=== PATIENT | male | born 1950 | race Caucasian/White ===

== ENCOUNTER → 2022-08-26 09:53 | Outpatient (CLI) | payer MEDICARE, MEDICAID, SELFPAY | PROVIDERS: Visit Provider Surgery | DX: I87.2 Venous insufficiency (chronic) (peripheral) (principal); L97.212 Non-pressure chronic ulcer of right calf with fat layer exposed; G60.9 Hereditary and idiopathic neuropathy, unspecified; L97.312 Non-pressure chronic ulcer of right ankle with fat layer exposed; L97.812 Non-pressure chronic ulcer of other part of right lower leg with fat layer exposed; M79.604 Pain in right leg; R60.0 Localized edema | CPT/HCPCS: 11042; 11045; 29581; 87070; 87075; 87077; 87186; 87205; 93922; 99204; 99214 ==

== ENCOUNTER → 2022-08-28 10:05 | Outpatient (CLI) | payer MEDICARE, MEDICAID, SELFPAY | PROVIDERS: Visit Provider Surgery | DX: I87.2 Venous insufficiency (chronic) (peripheral) (principal); L97.312 Non-pressure chronic ulcer of right ankle with fat layer exposed; L97.812 Non-pressure chronic ulcer of other part of right lower leg with fat layer exposed; R60.0 Localized edema | CPT/HCPCS: 29581 ==

== ENCOUNTER → 2022-09-02 11:44 | Outpatient (CLI) | payer MEDICARE, MEDICAID, SELFPAY | PROVIDERS: Visit Provider Surgery | DX: I87.2 Venous insufficiency (chronic) (peripheral) (principal); L97.312 Non-pressure chronic ulcer of right ankle with fat layer exposed; L97.812 Non-pressure chronic ulcer of other part of right lower leg with fat layer exposed; G90.09 Other idiopathic peripheral autonomic neuropathy | CPT/HCPCS: 97597; 97598; 99213 ==

== ENCOUNTER → 2022-09-08 10:29 | Outpatient (CLI) | payer MEDICARE, MEDICAID, SELFPAY | PROVIDERS: Visit Provider Surgery | DX: I87.2 Venous insufficiency (chronic) (peripheral) (principal); L97.312 Non-pressure chronic ulcer of right ankle with fat layer exposed; L97.812 Non-pressure chronic ulcer of other part of right lower leg with fat layer exposed; G60.9 Hereditary and idiopathic neuropathy, unspecified; M79.604 Pain in right leg; R60.0 Localized edema | CPT/HCPCS: 11042; 11045 ==

== ENCOUNTER → 2022-09-12 12:42 | Outpatient (CLI) | payer MEDICARE, MEDICAID, SELFPAY | PROVIDERS: Visit Provider Surgery | DX: I87.2 Venous insufficiency (chronic) (peripheral) (principal); L97.312 Non-pressure chronic ulcer of right ankle with fat layer exposed; L97.812 Non-pressure chronic ulcer of other part of right lower leg with fat layer exposed; R60.0 Localized edema | CPT/HCPCS: 29581 ==

== ENCOUNTER → 2022-09-17 15:03 | Outpatient (CLI) | payer MEDICARE, MEDICAID, SELFPAY | PROVIDERS: Visit Provider Surgery | DX: I87.2 Venous insufficiency (chronic) (peripheral) (principal); L97.312 Non-pressure chronic ulcer of right ankle with fat layer exposed; L97.812 Non-pressure chronic ulcer of other part of right lower leg with fat layer exposed; G60.9 Hereditary and idiopathic neuropathy, unspecified; R60.0 Localized edema | CPT/HCPCS: 11042; 11045 ==

== ENCOUNTER → 2022-09-24 11:46 | Outpatient (CLI) | payer MEDICARE, MEDICAID, SELFPAY | PROVIDERS: Visit Provider Surgery | DX: I87.2 Venous insufficiency (chronic) (peripheral) (principal); L97.312 Non-pressure chronic ulcer of right ankle with fat layer exposed; L97.812 Non-pressure chronic ulcer of other part of right lower leg with fat layer exposed; R60.0 Localized edema | CPT/HCPCS: 29581 ==

== ENCOUNTER → 2022-10-07 09:52 | Outpatient (CLI) | payer MEDICARE, MEDICAID, SELFPAY | PROVIDERS: Visit Provider Surgery | DX: I87.2 Venous insufficiency (chronic) (peripheral) (principal); L97.312 Non-pressure chronic ulcer of right ankle with fat layer exposed; L97.811 Non-pressure chronic ulcer of other part of right lower leg limited to breakdown of skin; R60.0 Localized edema; F42.4 Excoriation (skin-picking) disorder | CPT/HCPCS: 29581 ==

== ENCOUNTER → 2022-10-14 09:58 | Outpatient (CLI) | payer MEDICARE, MEDICAID, SELFPAY | PROVIDERS: Visit Provider Surgery | DX: I87.2 Venous insufficiency (chronic) (peripheral) (principal); L97.312 Non-pressure chronic ulcer of right ankle with fat layer exposed; G60.9 Hereditary and idiopathic neuropathy, unspecified | CPT/HCPCS: 11042 ==

== ENCOUNTER → 2022-10-21 10:26 | Outpatient (CLI) | payer MEDICARE, MEDICAID, SELFPAY | PROVIDERS: Visit Provider Surgery | DX: I87.2 Venous insufficiency (chronic) (peripheral) (principal); L97.312 Non-pressure chronic ulcer of right ankle with fat layer exposed; R60.0 Localized edema | CPT/HCPCS: 97597; 99212; 99213 ==

== ENCOUNTER → 2022-10-28 10:37 | Outpatient (CLI) | payer MEDICARE, MEDICAID, SELFPAY | PROVIDERS: Visit Provider Surgery | DX: I87.2 Venous insufficiency (chronic) (peripheral) (principal); S90.122A Contusion of left lesser toe(s) without damage to nail, initial encounter; L97.312 Non-pressure chronic ulcer of right ankle with fat layer exposed; G60.9 Hereditary and idiopathic neuropathy, unspecified | CPT/HCPCS: 11042; 97597; 99213 ==

== ENCOUNTER → 2022-11-03 08:50 | Outpatient (CLI) | payer MEDICARE, MEDICAID, SELFPAY | PROVIDERS: Visit Provider Surgery | DX: I87.2 Venous insufficiency (chronic) (peripheral) (principal); L97.312 Non-pressure chronic ulcer of right ankle with fat layer exposed; S90.415A Abrasion, left lesser toe(s), initial encounter; G60.9 Hereditary and idiopathic neuropathy, unspecified; R60.0 Localized edema; F42.4 Excoriation (skin-picking) disorder | CPT/HCPCS: 11042; 97597 ==

== ENCOUNTER → 2022-11-10 10:52 | Outpatient (CLI) | payer MEDICARE, MEDICAID, SELFPAY | PROVIDERS: Visit Provider Surgery | DX: I87.2 Venous insufficiency (chronic) (peripheral) (principal); L97.312 Non-pressure chronic ulcer of right ankle with fat layer exposed; S90.415A Abrasion, left lesser toe(s), initial encounter; R60.0 Localized edema | CPT/HCPCS: 97597 ==

== ENCOUNTER → 2022-11-17 10:19 | Outpatient (CLI) | payer MEDICARE, MEDICAID, SELFPAY | PROVIDERS: Visit Provider Surgery | DX: I87.2 Venous insufficiency (chronic) (peripheral) (principal); L97.212 Non-pressure chronic ulcer of right calf with fat layer exposed; L97.312 Non-pressure chronic ulcer of right ankle with fat layer exposed; S90.414D Abrasion, right lesser toe(s), subsequent encounter | CPT/HCPCS: 97597 ==

== ENCOUNTER → 2022-11-24 13:34 | Outpatient (CLI) | payer MEDICARE, MEDICAID, SELFPAY | PROVIDERS: Visit Provider Surgery | DX: I87.2 Venous insufficiency (chronic) (peripheral) (principal); L97.312 Non-pressure chronic ulcer of right ankle with fat layer exposed; R60.0 Localized edema; G60.0 Hereditary motor and sensory neuropathy | CPT/HCPCS: 97597; 99212; 99213 ==

== ENCOUNTER → 2022-12-01 13:41 | Outpatient (CLI) | payer MEDICARE, MEDICAID, SELFPAY | PROVIDERS: Visit Provider Surgery | DX: I87.2 Venous insufficiency (chronic) (peripheral) (principal); L97.312 Non-pressure chronic ulcer of right ankle with fat layer exposed; G60.9 Hereditary and idiopathic neuropathy, unspecified; R60.0 Localized edema | CPT/HCPCS: 97597 ==

== ENCOUNTER → 2022-12-08 10:15 | Outpatient (CLI) | payer MEDICARE, MEDICAID, SELFPAY | PROVIDERS: Visit Provider Surgery | DX: I87.2 Venous insufficiency (chronic) (peripheral) (principal); L97.312 Non-pressure chronic ulcer of right ankle with fat layer exposed; G60.9 Hereditary and idiopathic neuropathy, unspecified; R60.0 Localized edema | CPT/HCPCS: 87070; 87077; 87147; 87186; 87205; 97597; 99213 ==

== ENCOUNTER → 2022-12-15 10:54 | Outpatient (CLI) | payer MEDICARE, MEDICAID, SELFPAY | PROVIDERS: Visit Provider Surgery | DX: I87.2 Venous insufficiency (chronic) (peripheral) (principal); L97.312 Non-pressure chronic ulcer of right ankle with fat layer exposed; R60.0 Localized edema; G60.9 Hereditary and idiopathic neuropathy, unspecified | CPT/HCPCS: 97597 ==

== ENCOUNTER → 2022-12-23 09:37 | Outpatient (CLI) | payer MEDICARE, MEDICAID, SELFPAY | PROVIDERS: Visit Provider Surgery | DX: I87.2 Venous insufficiency (chronic) (peripheral) (principal); L97.312 Non-pressure chronic ulcer of right ankle with fat layer exposed; R60.0 Localized edema | CPT/HCPCS: 97597; 99213 ==

== ENCOUNTER → 2022-12-30 09:58 | Outpatient (CLI) | payer MEDICARE, MEDICAID, SELFPAY | PROVIDERS: Visit Provider Surgery | DX: I87.2 Venous insufficiency (chronic) (peripheral) (principal); L97.312 Non-pressure chronic ulcer of right ankle with fat layer exposed; G60.9 Hereditary and idiopathic neuropathy, unspecified; R60.0 Localized edema | CPT/HCPCS: 97597; 99213 ==

== ENCOUNTER → 2023-01-06 11:33 | Outpatient (CLI) | payer MEDICARE, MEDICAID, SELFPAY | PROVIDERS: Visit Provider Surgery | DX: I87.2 Venous insufficiency (chronic) (peripheral) (principal); L97.322 Non-pressure chronic ulcer of left ankle with fat layer exposed; R60.0 Localized edema; S81.801A Unspecified open wound, right lower leg, initial encounter | CPT/HCPCS: 97597; 99213 ==

== ENCOUNTER → 2023-01-13 10:51 | Outpatient (CLI) | payer MEDICARE, MEDICAID, SELFPAY | PROVIDERS: Visit Provider Surgery | DX: I87.2 Venous insufficiency (chronic) (peripheral) (principal); L97.312 Non-pressure chronic ulcer of right ankle with fat layer exposed; S81.801A Unspecified open wound, right lower leg, initial encounter | CPT/HCPCS: 29581; 99213 ==

== ENCOUNTER → 2023-01-20 11:13 | Outpatient (CLI) | payer MEDICARE, MEDICAID, SELFPAY | PROVIDERS: Visit Provider Surgery | DX: I87.2 Venous insufficiency (chronic) (peripheral) (principal); L97.312 Non-pressure chronic ulcer of right ankle with fat layer exposed; S81.801A Unspecified open wound, right lower leg, initial encounter | CPT/HCPCS: 97597; 99212; 99213 ==

== ENCOUNTER → 2023-01-27 10:14 | Outpatient (CLI) | payer MEDICARE, MEDICAID, SELFPAY | PROVIDERS: Visit Provider Surgery | DX: I87.2 Venous insufficiency (chronic) (peripheral) (principal); L97.312 Non-pressure chronic ulcer of right ankle with fat layer exposed; R60.0 Localized edema | CPT/HCPCS: 11042 ==

== ENCOUNTER → 2023-02-03 10:00 | Outpatient (CLI) | payer MEDICARE, MEDICAID, SELFPAY | PROVIDERS: Visit Provider Surgery | DX: I87.2 Venous insufficiency (chronic) (peripheral) (principal); L97.312 Non-pressure chronic ulcer of right ankle with fat layer exposed; R60.0 Localized edema; G60.9 Hereditary and idiopathic neuropathy, unspecified | CPT/HCPCS: 29581; 99213 ==

== ENCOUNTER → 2023-02-10 10:05 | Outpatient (CLI) | payer MEDICARE, MEDICAID, SELFPAY | PROVIDERS: Visit Provider Surgery | DX: I87.2 Venous insufficiency (chronic) (peripheral) (principal); L97.312 Non-pressure chronic ulcer of right ankle with fat layer exposed; G60.9 Hereditary and idiopathic neuropathy, unspecified | CPT/HCPCS: 29581; 99213 ==

== ENCOUNTER → 2023-02-17 10:16 | Outpatient (CLI) | payer MEDICARE, MEDICAID, SELFPAY | PROVIDERS: Visit Provider Surgery | DX: I87.2 Venous insufficiency (chronic) (peripheral) (principal) | CPT/HCPCS: 99213 ==

== ENCOUNTER → 2023-02-24 10:18 | Outpatient (CLI) | payer MEDICARE, MEDICAID, SELFPAY | PROVIDERS: Referring Provider Family Medicine; Visit Provider Surgery | DX: I87.2 Venous insufficiency (chronic) (peripheral) (principal); L97.811 Non-pressure chronic ulcer of other part of right lower leg limited to breakdown of skin; G60.9 Hereditary and idiopathic neuropathy, unspecified | CPT/HCPCS: 99213 ==

== ENCOUNTER → 2023-03-03 10:15 | Outpatient (CLI) | payer MEDICARE, MEDICAID, SELFPAY | PROVIDERS: Visit Provider Surgery | DX: I87.2 Venous insufficiency (chronic) (peripheral) (principal); G60.9 Hereditary and idiopathic neuropathy, unspecified; I25.10 Atherosclerotic heart disease of native coronary artery without angina pectoris | CPT/HCPCS: 99213 ==

== ENCOUNTER → 2023-03-17 13:13 | Outpatient (CLI) | payer MEDICARE, MEDICAID, SELFPAY | LOC: WC 13:14 | PROVIDERS: Visit Provider Surgery | DX: I87.2 Venous insufficiency (chronic) (peripheral) (principal); G60.9 Hereditary and idiopathic neuropathy, unspecified | CPT/HCPCS: 99212; 99213 ==

== ENCOUNTER → 2023-05-27 13:57 | Outpatient (CLI) | payer MEDICARE, MEDICAID, SELFPAY | LOC: WC 13:59 | PROVIDERS: Visit Provider Surgery | DX: I87.2 Venous insufficiency (chronic) (peripheral) (principal); L97.812 Non-pressure chronic ulcer of other part of right lower leg with fat layer exposed; M79.604 Pain in right leg | CPT/HCPCS: 11042; 87070; 87075; 87077; 87147; 87186; 87205; 99213 ==

== ENCOUNTER → 2023-06-03 10:00 | Outpatient (CLI) | payer MEDICARE, MEDICAID, SELFPAY | PROVIDERS: Visit Provider Surgery | DX: I87.2 Venous insufficiency (chronic) (peripheral) (principal); L97.812 Non-pressure chronic ulcer of other part of right lower leg with fat layer exposed; G60.9 Hereditary and idiopathic neuropathy, unspecified | CPT/HCPCS: 11042; 99213 ==

== ENCOUNTER → 2023-06-09 10:42 | Outpatient (CLI) | payer MEDICARE, MEDICAID, SELFPAY | LOC: WC 10:45 | PROVIDERS: Visit Provider Surgery | DX: I87.2 Venous insufficiency (chronic) (peripheral) (principal); L97.812 Non-pressure chronic ulcer of other part of right lower leg with fat layer exposed; R60.0 Localized edema | CPT/HCPCS: 11042 ==

== ENCOUNTER → 2023-06-16 14:45 | Outpatient (CLI) | payer MEDICARE, MEDICAID, SELFPAY ==
--- NOTE | 2023-06-16 | OV.WND_ITS ---
Progress Note Details Patient Name: Harinder Lopez Date: Patient Number: [id number] Clinician: Isi Bender R.N. Patient Date of : 1950 Physician / Stained Glass Window Designer: SherrieGuillermo Patient SUBJECTIVE Chief Complaint This information was obtained from the Chart, Patient. Wounds to right leg. Allergies Lamisil HPI This information was obtained from the Patient. The following HPI elements were documented for the patient's wound: Location: RLE Duration: 03/31/23 Context: venous Associated Signs and Symptoms: none The patient is a 71-year-old male with a history of venous insufficiency, neuropathy, and coronary artery disease who returns today for follow up of recurrent venous ulcers of the right lower extremity. The patient is receiving dressing changes with Hydrofera blue and 2 layer compression wrap. The patient is without complaints today and denies having any pain nor has he noted any significant redness, swelling, or drainage. No changes in overall health since previous visit. Past history is remarkable for previous ablation of the right greater saphenous vein in November 2016. Previous JAEL show adequate perfusion for healing. The patient reports a good appetite and is taking protein supplements. Cultures grew Enterobacter cloacae complex and Corynebacterium minutissimum. On exam today measurements are improved and the periwound skin is less excoriated. The patient has completed a week of doxycycline. Previous workup 05/31/23: Cultures grew Enterobacter cloacae complex and Corynebacterium minutissimum. 12/08/22: Cultures grew Staphylococcus simulans 08/26/22 : Cultures revealed Citrobacter braakii and Klebsiella oxytoca 08/26/22: ABIs were 1.01 on the left and 0.97 on the rig Medical History This information was obtained from the Patient. Patient has a medical history of: Hypothyroidism Coronary Artery Disease (CAD) Hydrocele Venous Insufficiency Venous stasis ulcer Idiopathic peripheral neuropathy Harinder Lopez [id number] 1950 Chronic knee pain Right inguinal hernia Surgical History This information was obtained from the Patient. Patient has a surgical history of: Appendectomy- 01/11/1960 Knee replacement- Kidney stone removal- (multiple) Stent placement - Venous ablation- R SFA- (2016) OBJECTIVE Vitals Height/Length: 74 in (187.96 cm), Weight: 208.5 lbs (94.77 kgs), BMI: 26.8, Temperature: 97.9 ?F (36.61 ?C), Pulse: 65 bpm, Respiratory Rate: 18 breaths/min, Blood Pressure: 156/73 mmHg, Pulse Oximetry: 96 %. Physical Exam Constitutional: Vital signs reviewed and noted. Well developed, well nourished, and in no acute distress. Alert and oriented x3. Respiratory: Even respirations without use of accessory muscles. No intercoastal retractions noted. Even and non labored respiration. Integumentary (Hair, Skin): Dry scaly skin. See wound assessment. Neurological: Sensation: Symmetric function by informal observation. Psychiatric: Orientation to time, place and person: Normal affect with normal thought pattern. Additional Information The patient's potential to heal is: fair. Wound Assessment(s) Wound #6 Right, Medial Leg is a chronic Full Thickness Venous Ulcer and has received a status of Not Healed. Initial wound encounter measurements are 1.6cm length x 1.1cm width x 0.2 cm depth, with an area of 1.76 sq cm and a volume of 0.352 cubic cm. Adipose is exposed. No tunneling has been noted. No sinus tract has been noted. No undermining has been noted. There is a Small amount of serosanguineous drainage noted which has a Mild odor. The patient reports a wound pain of level 4/10. The wound margin is attached Wound bed has Yes, bright red, pink, firm, granulation, Yes slough, No eschar, No epithelialization. The periwound skin exhibited edema, maceration and hemosiderosis. The periwound skin was moist. The temperature of the periwound skin is WNL. Periwound skin does not exhibit signs or symptoms of infection. Local Pulse is Doppler. General Notes Labeled incorrectly, should read #6. Additional Information Limited to breakdown of skin: Harinder Cha [id number] 1950 Wound #7 Right, Anterior Leg is a chronic Full Thickness Venous Ulcer and has received a status of Not Healed. Initial wound encounter measurements are 0.9cm length x 0.3cm width x 0.1 cm depth, with an area of 0.27 sq cm and a volume of 0.027 cubic cm. Adipose is exposed. No tunneling has been noted. No sinus tract has been noted. No undermining has been noted. There is a Moderate amount of serosanguineous drainage noted which has a Mild odor. The patient reports a wound pain of level 4/10. The wound margin is attached Wound bed has Yes, bright red, pink, firm, granulation, Yes slough, No eschar, No epithelialization. The periwound skin exhibited edema and hemosiderosis. The temperature of the periwound skin is WNL. Local Pulse is Doppler. General Notes Label is incorrect, should read #7. Additional Information Limited to breakdown of skin: No ASSESSMENT Active Problems ICD-10 (Encounter Diagnosis) L97.312 - Non-pressure chronic ulcer of right ankle with fat layer exposed (Encounter Diagnosis) L97.212 - Non-pressure chronic ulcer of right calf with fat layer exposed (Encounter Diagnosis) I87.2 - Venous insufficiency (chronic) (peripheral) General Notes 2 venous ulcers right lower extremity, measurements improved, periwound skin less excoriated The following factors have been identified that may affect wound healing: Devitalized tissue Bioburden Venous insufficiency Noncompliance Edema Goals: remove devitalized tissue Remove and prevent biofilm Reduce swelling Improve compliance Wound healing Prevent recurrence Plan: debridement, continue changes with Hydrofera blue and 2 layer compression wrap. Follow up in 1 week for a recheck. PROCEDURES Wound #6 Wound #6 (Venous Ulcer) is located on the right, medial leg. A skin/subcutaneous tissue level surgical debridement with a total area debrided of 1.76 sq cm. was performed by Guillermo Balderas MD. Subcutaneous was removed along with devitalized tissue: slough. The following instrument(s) were used: curette. Pain control was achieved using EMLA lidocaine/prilocaine 2.5%/2.5%. A time out was conducted prior to the start of the procedure. A minimal amount of bleeding was controlled with pressure. The procedure was tolerated well with a pain level of 0 throughout and a pain level of 0 NandeannaHarinder [id number] 1950 following the procedure. Post Debridement Measurements: 1.6cm length x 1.1cm width x 0.3cm depth; with an area of 1.76 sq cm and a volume of 0.528 cubic cm. Wound #6 (Venous Ulcer) is located on the right, medial leg. A Multilayer Compression procedure was performed for the lower right extremity by Nancy Gonzalez MA. A 2 layer Coban wrap was applied with high (30-40 mmHg) compression. The procedure was tolerated well with a pain level of 0 throughout and a pain level of 0 following the procedure. General Notes Coban 2 regulars applied per manufacture guidelines. Wound #7 Wound #7 (Venous Ulcer) is located on the right, anterior leg. A skin/subcutaneous tissue level surgical debridement with a total area debrided of 0.27 sq cm. was performed by Guillermo Balderas MD. Subcutaneous was removed along with devitalized tissue: slough. The following instrument(s) were used: curette. Pain control was achieved using EMLA lidocaine/prilocaine 2.5%/2.5%. A time out was conducted prior to the start of the procedure. A minimal amount of bleeding was controlled with pressure. The procedure was tolerated well with a pain level of 0 throughout and a pain level of 0 following the procedure. Post Debridement Measurements: 0.9cm length x 0.3cm width x 0.2cm depth; with an area of 0.27 sq cm and a volume of 0.054 cubic cm. Additional Information Muscle fascia or bone removed and sent to pathology?: No PLAN Wound Orders: Wound #6 Right, Medial Leg Anesthetic Topical Xylocaine to wound bed Hygiene May shower with wound protected, using a cast protector or plastic bag and tape Cleanser Cleanse Wound with normal saline Dressings Primary dressing - Hydrofera blue Cover and secure with - Paper tape. Change Dressing - Next visit Physician Review: Reviewed and evaluated labs. Discussed the Plan of Care @ bedside with - the patient Reviewed hospital records. I, as the physician, have reviewed the orders scribed by the center RN's and agree. Wound #7 Right, Anterior Leg Anesthetic Topical Xylocaine to wound bed Hygiene May shower with wound protected, using a cast protector or plastic bag and tape Cleanser Cleanse Wound with normal saline Dressings Primary dressing - Hydrofera blue Cover and secure with - Paper tape. Change Dressing - Next visit Physician Review: Reviewed and evaluated labs. Harinder Lopez [id number] 1950 Discussed the Plan of Care @ bedside with - the patient Reviewed hospital records. I, as the physician, have reviewed the orders scribed by the center RN's and agree. Additional Orders: Compression/Edema Control Multi Layer Wrap - Do not get leg(s) with compression wrap wet. If wraps are too tight call the wound care center or remove if you are unable to reach the center. Please remove wraps for numbness, tingling, pain in legs or color changes in toes and call the clinic the same day. If symptoms do not resolve after removing wraps please go to the ER for evaluation. Local pharmacies carry plastic cast protectors that may be used for protection while showering. - Coban 2 regulars Dietary Increased protein Follow-Up Appointments Return Appointment - One week Other information: If you develop fever, chills, increased pain, drainage, redness or swelling please call our office. If after hours, respond to the ER. Should you experience any significant changes in your wound(s) or have any questions regarding your home care instructions please contact the wound center @ [phone]. If after hours, contact your primary care physician or go to the hospital emergency room. Scribing Attestation I attest, as the nurse, that I scribed these orders for the physician. Plan of Care: 01. ENSURE/ESTABLISH OPTIMAL BLOOD FLOW : - Complete lower extremity assessment - Perform non-invasive vascular testing (i.e. JAEL) and document findings. Consider repeating when wound healing <40% after 30 days of wound care. - Order Vascular Consult for evaluation/treatment and/or non-invasive vascular testing. 02. ASSESS FOR/TREAT INFECTION : - Evaluate for signs and symptoms of infection and document findings. - Obtain culture and sensitivity (CandS) or tissue culture when infection is suspected. (NOTE:) Consider repeating when wound healing <40% after 30 days of wound care. - Order appropriate antibiotics based on patient presentation and culture and sensitivity results. Instruct patient on the importance of taking medication as prescribed. 03. DEBRIDE WEEKLY OR MORE OFTEN PRN : - Evaluate patient in center weekly to assess wound bed and margins for need for debridement. - Debridement by any method to remove devitalized/necrotic tissue to promote healing and prevent further complications. Goal is to stimulate and/or maintain acute phase of wound healing by reducing bacterial burden and devitalized/non-viable tissue. 04. OPTIMIZE GLUCOSE CONTROL and NUTRITION : - Reviewed, not applicable 05. OFFLOADING PLAN : - Reviewed, not applicable 06. OPTIMIZE HOST FACTORS: - Reviewed, not applicable 07. DRESSING SELECTION : - Evaluate for dressing-related factors, such as availability, wear time, adaptability and use to better optimize wound healing and patient compliance. - Choose topical treatments and/or dressing based on wound type and appearance, periwound skin condition, wound size and depth, anatomic location, volume of exudate, edema in the lower extremities, and risk or presence of infection. 08. ADVANCED MODALITIES : - Evaluate for appropriateness of Cellular Tissue Product therapy. 09. FALL PREVENTION : - Complete fall assessment. Harinder Lopez [id number] 1950 10. PAIN MANAGEMENT : - Complete pain assessment 11. MEASURABLE GOALS for Wound Healing and/or Hyperbaric Oxygen Therapy : - Less Drainage - Decrease Inflammation - Decrease pain - Decrease Wound Dimensions - Wound Closure - Improve quality of life 12. DURATION/FREQUENCY of Wound Care Visits : - 1x weekly for 30 days Electronic Signature(s) Signed By: Date: Guillermo Balderas MD 06/16/2023 15:05:12 (PT) Entered By: Guillermo Balderas MD on 06/16/2023 15:04:44 (PT) Harinder Lopez [id number] 1950
== END ==
LOC: WC 14:47
PROVIDERS: Visit Provider Surgery
DX: I87.2 Venous insufficiency (chronic) (peripheral) (principal); L97.812 Non-pressure chronic ulcer of other part of right lower leg with fat layer exposed; R60.0 Localized edema; G60.9 Hereditary and idiopathic neuropathy, unspecified; M79.604 Pain in right leg; Z91.198 Patient's noncompliance with other medical treatment and regimen for other reason
CPT/HCPCS: 11042

== ENCOUNTER → 2023-06-23 10:40 | Outpatient (CLI) | payer MEDICARE, MEDICAID, SELFPAY | PROVIDERS: Visit Provider Surgery | DX: I87.2 Venous insufficiency (chronic) (peripheral) (principal); L97.812 Non-pressure chronic ulcer of other part of right lower leg with fat layer exposed; G60.9 Hereditary and idiopathic neuropathy, unspecified; R60.0 Localized edema; L98.8 Other specified disorders of the skin and subcutaneous tissue | CPT/HCPCS: 11042 ==

== ENCOUNTER → 2023-06-30 10:46 | Outpatient (CLI) | payer MEDICARE, MEDICAID, SELFPAY | LOC: WC 11:16 | PROVIDERS: Visit Provider Surgery | DX: L97.812 Non-pressure chronic ulcer of other part of right lower leg with fat layer exposed (principal); I87.2 Venous insufficiency (chronic) (peripheral); I25.10 Atherosclerotic heart disease of native coronary artery without angina pectoris; R60.0 Localized edema; L53.9 Erythematous condition, unspecified; L08.9 Local infection of the skin and subcutaneous tissue, unspecified; Z79.2 Long term (current) use of antibiotics | CPT/HCPCS: 11042; 87070; 87075; 87077; 87186; 87205; 99213 ==

== ENCOUNTER → 2023-07-07 09:58 | Outpatient (CLI) | payer MEDICARE, MEDICAID, SELFPAY | LOC: WC 10:06 | PROVIDERS: Visit Provider Surgery | DX: I87.2 Venous insufficiency (chronic) (peripheral) (principal); L97.812 Non-pressure chronic ulcer of other part of right lower leg with fat layer exposed; R60.0 Localized edema; G60.9 Hereditary and idiopathic neuropathy, unspecified; I25.119 Atherosclerotic heart disease of native coronary artery with unspecified angina pectoris; Z91.199 Patient's noncompliance with other medical treatment and regimen due to unspecified reason | CPT/HCPCS: 11042 ==

== ENCOUNTER → 2023-07-14 10:14 | Outpatient (CLI) | payer MEDICARE, MEDICAID, SELFPAY | PROVIDERS: Visit Provider Surgery | DX: L97.312 Non-pressure chronic ulcer of right ankle with fat layer exposed (principal); I87.2 Venous insufficiency (chronic) (peripheral); R60.0 Localized edema | CPT/HCPCS: 11042 ==

== ENCOUNTER → 2023-07-21 10:47 | Outpatient (CLI) | payer MEDICARE, MEDICAID, SELFPAY | LOC: WC 10:48 | PROVIDERS: Visit Provider Surgery | DX: I87.2 Venous insufficiency (chronic) (peripheral) (principal); L97.312 Non-pressure chronic ulcer of right ankle with fat layer exposed; G60.9 Hereditary and idiopathic neuropathy, unspecified; L98.8 Other specified disorders of the skin and subcutaneous tissue; Z91.119 Patient's noncompliance with dietary regimen due to unspecified reason | CPT/HCPCS: 11042 ==

== ENCOUNTER → 2023-07-28 10:32 | Outpatient (CLI) | payer MEDICARE, MEDICAID, SELFPAY | PROVIDERS: Visit Provider Surgery | DX: I87.2 Venous insufficiency (chronic) (peripheral) (principal); L97.312 Non-pressure chronic ulcer of right ankle with fat layer exposed; L98.8 Other specified disorders of the skin and subcutaneous tissue; R60.0 Localized edema | CPT/HCPCS: 11042 ==

== ENCOUNTER → 2023-08-04 10:38 | Outpatient (CLI) | payer MEDICARE, MEDICAID, SELFPAY | PROVIDERS: Visit Provider Surgery | DX: I87.2 Venous insufficiency (chronic) (peripheral) (principal); L97.312 Non-pressure chronic ulcer of right ankle with fat layer exposed; G60.9 Hereditary and idiopathic neuropathy, unspecified; R60.0 Localized edema; L98.8 Other specified disorders of the skin and subcutaneous tissue | CPT/HCPCS: 11042; 99213 ==

== ENCOUNTER → 2023-08-07 13:52 | Outpatient (CLI) | payer MEDICARE, MEDICAID, SELFPAY | PROVIDERS: Visit Provider Physician Assistant | DX: I87.2 Venous insufficiency (chronic) (peripheral) (principal); L97.812 Non-pressure chronic ulcer of other part of right lower leg with fat layer exposed; R60.0 Localized edema; L98.8 Other specified disorders of the skin and subcutaneous tissue | CPT/HCPCS: 29581 ==

== ENCOUNTER → 2023-08-11 14:32 | Outpatient (CLI) | payer MEDICARE, MEDICAID, SELFPAY | LOC: WC 14:33 | PROVIDERS: Visit Provider Surgery | DX: I87.2 Venous insufficiency (chronic) (peripheral) (principal); L97.312 Non-pressure chronic ulcer of right ankle with fat layer exposed | CPT/HCPCS: 15271; Q4196 ==

== ENCOUNTER → 2023-08-18 13:44 | Outpatient (CLI) | payer MEDICARE, MEDICAID, SELFPAY | LOC: WC 13:45 | PROVIDERS: Visit Provider Surgery | DX: L97.312 Non-pressure chronic ulcer of right ankle with fat layer exposed (principal); I87.2 Venous insufficiency (chronic) (peripheral); R60.0 Localized edema; L53.9 Erythematous condition, unspecified | CPT/HCPCS: 15271; 29581; 99212; Q4196 ==

== ENCOUNTER → 2023-08-25 15:33 | Outpatient (CLI) | payer MEDICARE, MEDICAID, SELFPAY | PROVIDERS: Visit Provider Surgery | DX: L97.312 Non-pressure chronic ulcer of right ankle with fat layer exposed (principal); I87.2 Venous insufficiency (chronic) (peripheral) | CPT/HCPCS: 15271; 29581; 99213; Q4196 ==

== ENCOUNTER → 2023-09-01 10:44 | Outpatient (CLI) | payer MEDICARE, MEDICAID, SELFPAY | PROVIDERS: Visit Provider Surgery | DX: I87.2 Venous insufficiency (chronic) (peripheral) (principal); L97.812 Non-pressure chronic ulcer of other part of right lower leg with fat layer exposed; R60.0 Localized edema; L53.9 Erythematous condition, unspecified | CPT/HCPCS: 15271; 29581; 99213; Q4196 ==

== ENCOUNTER → 2023-09-08 13:28 | Outpatient (CLI) | payer MEDICARE, MEDICAID, SELFPAY ==
--- NOTE | 2023-09-08 | OV.WND_ITS ---
Progress Note Details Patient Name: Harinder Lopez Date: Patient Number: [id number] Clinician: Isi Bender R.N. Patient Date of : 1950 Physician / Huc: SherrieGuillermo Patient SUBJECTIVE Chief Complaint This information was obtained from the Chart. Wound to right leg. Allergies Lamisil HPI This information was obtained from the Patient. The following HPI elements were documented for the patient's wound: Location: RLE Duration: 03/31/23 Context: venous Associated Signs and Symptoms: none The patient is a 71-year-old male with a history of venous insufficiency, neuropathy, and coronary artery disease who returns today for follow up of recurrent venous ulcers of the right lower extremity. The patient had the 4th application of PuraPly last week with 2 layer compression wrap. Patient is without complaints today and denies having any unusual pain or discomfort nor has he had any fever or chills. No changes in overall health since previous visit. Past history is remarkable for previous ablation of the right greater saphenous vein in November 2016. Previous JAEL show adequate perfusion for healing. The patient reports a good appetite and is taking protein supplements. Cultures from June 30, 2023 grew Enterobacter cloacae complex. On exam today the ulcer measurements are improved and there is less drainage. No evidence for active infection. Patient has been on Cipro for 1 week. Previous workup 06/30/23: Cultures grew Enterobacter cloacae complex 05/31/23: Cultures grew Enterobacter cloacae complex and Corynebacterium minutissimum. 12/08/22: Cultures grew Staphylococcus simulans 08/26/22 : Cultures revealed Citrobacter braakii and Klebsiella oxytoca 08/26/22: ABIs were 1.01 on the left and 0.97 on the right Medical History This information was obtained from the Patient. Patient has a medical history of: Hypothyroidism Coronary Artery Disease (CAD) Hydrocele Venous Insufficiency Venous stasis ulcer Harinder Lopez [id number] 1950 Idiopathic peripheral neuropathy Chronic knee pain Right inguinal hernia Additional Information Does patient have a history of Cancer? Yes? Complete all questions.: No Surgical History This information was obtained from the Patient. Patient has a surgical history of: Appendectomy- 01/11/1960 Knee replacement- Kidney stone removal- (multiple) Stent placement - Venous ablation- R SFA- (2016) OBJECTIVE Vitals Height/Length: 74 in (187.96 cm), Weight: 215.7 lbs (98.05 kgs), BMI: 27.7, Temperature: 98.1 ?F (36.72 ?C), Pulse: 64 bpm, Respiratory Rate: 18 breaths/min, Blood Pressure: 134/71 mmHg, Pulse Oximetry: 98 %. Physical Exam Constitutional: Vital signs reviewed and noted. Well developed, well nourished, and in no acute distress. Alert and oriented x3. Respiratory: Even respirations without use of accessory muscles. No intercoastal retractions noted. Even and non labored respiration. Integumentary (Hair, Skin): See wound assessment. Neurological: Sensation: Symmetric function by informal observation. Psychiatric: Orientation to time, place and person: Normal affect with normal thought pattern. Additional Information The patient's potential to heal is: fair. Wound Assessment(s) Wound #6 Right, Medial Leg is a chronic Full Thickness Venous Ulcer and has received a status of Not Healed. Initial wound encounter measurements are 3.6cm length x 1cm width x 0.2 cm depth, with an area of 3.6 sq cm and a volume of 0.72 cubic cm. Adipose is exposed. No tunneling has been noted. No sinus tract has been noted. No undermining has been noted. There is a Moderate amount of serous drainage noted which has no odor. The patient reports a wound pain of level 0/10. The wound margin is rolled Wound bed has Yes, bright red, pink, firm, granulation, Yes slough, No eschar, Yes epithelialization. The periwound skin exhibited edema, erythema and hemosiderosis. The periwound skin did not exhibit rash and maceration. The periwound skin was dry/scaly and moist. The temperature of the periwound skin is WNL. Periwound skin does not exhibit signs or symptoms of infection. Local Pulse is Doppler. Additional Information Limited to breakdown of skin: No Harinder Lopez [id number] 1950 ASSESSMENT Active Problems ICD-10 (Encounter Diagnosis) L97.312 - Non-pressure chronic ulcer of right ankle with fat layer exposed L97.212 - Non-pressure chronic ulcer of right calf with fat layer exposed (Encounter Diagnosis) I87.2 - Venous insufficiency (chronic) (peripheral) L97.412 - Non-pressure chronic ulcer of right heel and midfoot with fat layer exposed General Notes venous ulcer right medial ankle improved The following factors have been identified that may affect wound healing: Devitalized tissue Bioburden Venous insufficiency Noncompliance Edema Infection Goals: remove devitalized tissue Remove and prevent biofilm Reduce swelling Improve compliance Wound healing Prevent recurrence Treat infection Plan: debridement, placement of 5th PuraPly with 2 layer compression wrap. Follow up in 1 week for a recheck PROCEDURES Wound #6 Wound #6 (Venous Ulcer) is located on the right, medial leg. A skin/subcutaneous tissue level surgical debridement with a total area debrided of 3.6 sq cm. was performed by Guillermo Balderas MD. Subcutaneous was removed along with devitalized tissue: biofilm, exudate and slough. The following instrument(s) were used: curette. Pain control was achieved using EMLA lidocaine/prilocaine 2.5%/2.5%. A time out was conducted prior to the start of the procedure. A minimal amount of bleeding was controlled with pressure. The procedure was tolerated well with a pain level of 0 throughout and a pain level of 0 following the procedure. Post Debridement Measurements: 3.6cm length x 1cm width x 0.3cm depth; with an area of 3.6 sq cm and a volume of 1.08 cubic cm. Additional Information Muscle fascia or bone removed and sent to pathology?: No Wound #6 (Venous Ulcer) is located on the right, medial leg. A skin substitute procedure was performed using Puraply Am 2x2 by Guillermo Balderas MD with an application area of 3.6 sq cm. The lot # was [id number] and the order # was [id number]. The product expiration date was 04/11/2026. The product was not fenestrated. 0.4 sq cm of product was wasted due to product larger than wound size. 3.6 sq cm of product was utilized and was secured with Steri-Strips. Post application, a dressing was applied: adaptic touch, hydrofiber, optifoam. A time out was conducted prior to the start of the procedure. The procedure was tolerated well with a pain level of 0 throughout and a pain level of 0 Harinder Lopez [id number] 1950 following the procedure. General Notes PuraPly application #5 (1.6cm disc) Additional Information Application number:: 5 Positive response is visible from previous application?: Yes Is machine cementer and folder's serial number and exp date recorded?: Yes Is wound free of infection and necrosis?: Yes Exposed bone?: No Date of onset and previous therapies documented?: Yes Documentation of ulcer being present for 4 weeks or more?: Yes Does wound measure greater than 1.0cm2?: Yes Are the measurements at baseline, following cessation of conservative tx and prior to application of product documented?: Yes Is JAEL greater than 0.60 documented?: Yes Has the patient stopped smoking or have they had documented tobacco use/smoking cessation counseling?: Yes Is there documentations of concurrent medical management of patient's underlying medical conditions: Yes PLAN Wound Orders: Wound #6 Right, Medial Leg Anesthetic Topical Xylocaine to wound bed Hygiene May shower with wound protected, using a cast protector or plastic bag and tape Cleanser Cleanse Wound with normal saline Dressings Pack wound - PuraPly 1.6cm disc (5th Application) Primary dressing - Adaptic, steri-strips, alginate to bolster. Cover and secure with - Optifoam. Change Dressing - Leave in place until next visit. Compression/Edema Control Elevation of leg(s) above the level of the heart when sitting Avoid prolonged standing in one place Multi Layer Wrap - Do not get leg(s) with compression wrap wet. If wraps are too tight call the wound care center or remove if you are unable to reach the center. Please remove wraps for numbness, tingling, pain in legs or color changes in toes and call the clinic the same day. If symptoms do not resolve after removing wraps please go to the ER for evaluation. Local pharmacies carry plastic cast protectors that may be used for protection while showering. - [employer] Coban 2 Regular compression wrap system. Physician Review: Reviewed and evaluated labs. Discussed the Plan of Care @ bedside with - the patient Reviewed hospital records. I, as the physician, have reviewed the orders scribed by the center RN's and agree. Additional Orders: Topical Treatments Barrier ointment to protect surround skin Dietary Increased protein Other Harinder Lopez [id number] 1950 Instructions: - Continue to use mupirocin ointment on your left great toe. Instructions: - Please continue taking antibiotic as prescribed. Follow-Up Appointments Return Appointment - One week. Other information: If you develop fever, chills, increased pain, drainage, redness or swelling please call our office. If after hours, respond to the ER. Should you experience any significant changes in your wound(s) or have any questions regarding your home care instructions please contact the wound center @ [phone]. If after hours, contact your primary care physician or go to the hospital emergency room. Scribing Attestation I attest, as the nurse, that I scribed these orders for the physician. Plan of Care: 01. ENSURE/ESTABLISH OPTIMAL BLOOD FLOW : - Complete lower extremity assessment - Perform non-invasive vascular testing (i.e. JAEL) and document findings. Consider repeating when wound healing <40% after 30 days of wound care. - Order Vascular Consult for evaluation/treatment and/or non-invasive vascular testing. 02. ASSESS FOR/TREAT INFECTION : - Evaluate for signs and symptoms of infection and document findings. - Obtain culture and sensitivity (CandS) or tissue culture when infection is suspected. (NOTE:) Consider repeating when wound healing <40% after 30 days of wound care. - Order appropriate antibiotics based on patient presentation and culture and sensitivity results. Instruct patient on the importance of taking medication as prescribed. 03. DEBRIDE WEEKLY OR MORE OFTEN PRN : - Evaluate patient in center weekly to assess wound bed and margins for need for debridement. - Debridement by any method to remove devitalized/necrotic tissue to promote healing and prevent further complications. Goal is to stimulate and/or maintain acute phase of wound healing by reducing bacterial burden and devitalized/non-viable tissue. 04. OPTIMIZE GLUCOSE CONTROL and NUTRITION : - Reviewed, not applicable 05. OFFLOADING PLAN : - Reviewed, not applicable 06. OPTIMIZE HOST FACTORS: - Reviewed, not applicable 07. DRESSING SELECTION : - Evaluate for dressing-related factors, such as availability, wear time, adaptability and use to better optimize wound healing and patient compliance. - Choose topical treatments and/or dressing based on wound type and appearance, periwound skin condition, wound size and depth, anatomic location, volume of exudate, edema in the lower extremities, and risk or presence of infection. 08. ADVANCED MODALITIES : - Evaluate for appropriateness of Cellular Tissue Product therapy. 09. FALL PREVENTION : - Complete fall assessment. 10. PAIN MANAGEMENT : - Complete pain assessment 11. MEASURABLE GOALS for Wound Healing and/or Hyperbaric Oxygen Therapy : - Less Drainage - Decrease Inflammation - Decrease pain - Decrease Wound Dimensions - Wound Closure - Improve quality of life Harinder Lopez [id number] 1950 12. DURATION/FREQUENCY of Wound Care Visits : - 1x weekly for 30 days Electronic Signature(s) Signed By: Date: Guillermo Balderas MD 09/08/2023 15:21:25 (PT) Entered By: Guillermo Balderas MD on 09/08/2023 15:20:54 (PT) Harinder Lopez [id number] 1950
== END ==
PROVIDERS: Visit Provider Surgery
DX: I87.2 Venous insufficiency (chronic) (peripheral) (principal); L97.812 Non-pressure chronic ulcer of other part of right lower leg with fat layer exposed; R60.0 Localized edema; L53.9 Erythematous condition, unspecified
CPT/HCPCS: 15271; Q4196

== ENCOUNTER → 2023-09-15 13:27 | Outpatient (CLI) | payer MEDICARE, MEDICAID, SELFPAY | LOC: WC 13:28 | PROVIDERS: Visit Provider Surgery | DX: I87.2 Venous insufficiency (chronic) (peripheral) (principal); R60.0 Localized edema; L97.812 Non-pressure chronic ulcer of other part of right lower leg with fat layer exposed | CPT/HCPCS: 15271; 99213; Q4196 ==

== ENCOUNTER → 2023-09-22 14:41 | Outpatient (CLI) | payer MEDICARE, MEDICAID, SELFPAY | LOC: WC 14:45 | PROVIDERS: Visit Provider Surgery | DX: L97.312 Non-pressure chronic ulcer of right ankle with fat layer exposed (principal); I87.2 Venous insufficiency (chronic) (peripheral) | CPT/HCPCS: 15271; 99213; Q4196 ==

== ENCOUNTER → 2023-10-01 14:17 | Outpatient (CLI) | payer MEDICARE, MEDICAID, SELFPAY | PROVIDERS: Visit Provider Physician Assistant | DX: I87.2 Venous insufficiency (chronic) (peripheral) (principal); L97.812 Non-pressure chronic ulcer of other part of right lower leg with fat layer exposed; R60.0 Localized edema | CPT/HCPCS: 11042; 99214 ==

== ENCOUNTER → 2023-10-09 13:10 | Outpatient (CLI) | payer MEDICARE, MEDICAID, SELFPAY | LOC: WC 13:11 | PROVIDERS: Visit Provider Physician Assistant | DX: L97.812 Non-pressure chronic ulcer of other part of right lower leg with fat layer exposed (principal); I87.2 Venous insufficiency (chronic) (peripheral); R60.0 Localized edema | CPT/HCPCS: 29581 ==

== ENCOUNTER → 2023-10-15 13:07 | Outpatient (CLI) | payer MEDICARE, MEDICAID, SELFPAY | LOC: WC 13:09 | PROVIDERS: Visit Provider Surgery | DX: L97.812 Non-pressure chronic ulcer of other part of right lower leg with fat layer exposed (principal); I87.2 Venous insufficiency (chronic) (peripheral); R60.0 Localized edema; I25.10 Atherosclerotic heart disease of native coronary artery without angina pectoris; Z91.199 Patient's noncompliance with other medical treatment and regimen due to unspecified reason | CPT/HCPCS: 11042; 99212; 99213 ==

== ENCOUNTER → 2023-10-20 11:09 | Outpatient (CLI) | payer MEDICARE, MEDICAID, SELFPAY | LOC: WC 11:11 | PROVIDERS: Visit Provider Surgery | DX: I87.2 Venous insufficiency (chronic) (peripheral) (principal); L97.312 Non-pressure chronic ulcer of right ankle with fat layer exposed; R60.0 Localized edema; G60.9 Hereditary and idiopathic neuropathy, unspecified; I25.10 Atherosclerotic heart disease of native coronary artery without angina pectoris; Z91.199 Patient's noncompliance with other medical treatment and regimen due to unspecified reason | CPT/HCPCS: 11042 ==

== ENCOUNTER → 2023-10-27 10:36 | Outpatient (CLI) | payer MEDICARE, MEDICAID, SELFPAY | LOC: WC 10:37 | PROVIDERS: Visit Provider Physician Assistant | DX: L97.812 Non-pressure chronic ulcer of other part of right lower leg with fat layer exposed (principal); I87.2 Venous insufficiency (chronic) (peripheral); R60.0 Localized edema | CPT/HCPCS: 29580 ==

== ENCOUNTER → 2023-11-03 14:24 | Outpatient (CLI) | payer MEDICARE, MEDICAID, SELFPAY | PROVIDERS: Visit Provider Surgery | DX: L97.812 Non-pressure chronic ulcer of other part of right lower leg with fat layer exposed (principal); I87.2 Venous insufficiency (chronic) (peripheral); R60.0 Localized edema; I25.10 Atherosclerotic heart disease of native coronary artery without angina pectoris; Z91.199 Patient's noncompliance with other medical treatment and regimen due to unspecified reason | CPT/HCPCS: 11042 ==

== ENCOUNTER → 2023-11-10 13:44 | Outpatient (CLI) | payer MEDICARE, MEDICAID, SELFPAY | PROVIDERS: Visit Provider Surgery | DX: L97.812 Non-pressure chronic ulcer of other part of right lower leg with fat layer exposed (principal); I87.2 Venous insufficiency (chronic) (peripheral); R60.0 Localized edema; I25.10 Atherosclerotic heart disease of native coronary artery without angina pectoris; Z91.199 Patient's noncompliance with other medical treatment and regimen due to unspecified reason | CPT/HCPCS: 11042 ==

== ENCOUNTER → 2023-11-17 13:13 | Outpatient (CLI) | payer MEDICARE, MEDICAID, SELFPAY | LOC: WC 13:14 | PROVIDERS: Visit Provider Surgery | DX: L97.812 Non-pressure chronic ulcer of other part of right lower leg with fat layer exposed (principal); I87.2 Venous insufficiency (chronic) (peripheral); R60.0 Localized edema; I25.10 Atherosclerotic heart disease of native coronary artery without angina pectoris; Z91.199 Patient's noncompliance with other medical treatment and regimen due to unspecified reason | CPT/HCPCS: 11042; 99212; 99213 ==

== ENCOUNTER → 2023-11-24 14:28 | Outpatient (CLI) | payer MEDICARE, MEDICAID, SELFPAY | PROVIDERS: Visit Provider Surgery | DX: L97.312 Non-pressure chronic ulcer of right ankle with fat layer exposed (principal); I87.2 Venous insufficiency (chronic) (peripheral); R60.0 Localized edema; R23.4 Changes in skin texture; G62.9 Polyneuropathy, unspecified; I25.10 Atherosclerotic heart disease of native coronary artery without angina pectoris | CPT/HCPCS: 11042 ==

== ENCOUNTER → 2023-12-01 14:48 | Outpatient (CLI) | payer MEDICARE, MEDICAID, SELFPAY | LOC: WC 14:49 | PROVIDERS: Visit Provider Surgery | DX: L97.312 Non-pressure chronic ulcer of right ankle with fat layer exposed (principal); I87.2 Venous insufficiency (chronic) (peripheral); R60.0 Localized edema; I25.10 Atherosclerotic heart disease of native coronary artery without angina pectoris; G62.9 Polyneuropathy, unspecified; Z91.199 Patient's noncompliance with other medical treatment and regimen due to unspecified reason | CPT/HCPCS: 11042; 87070; 87147; 87205 ==

== ENCOUNTER → 2023-12-08 15:54 | Outpatient (CLI) | payer MEDICARE, MEDICAID, SELFPAY | LOC: WC 15:55 | PROVIDERS: Visit Provider Surgery | DX: L97.312 Non-pressure chronic ulcer of right ankle with fat layer exposed (principal); I87.2 Venous insufficiency (chronic) (peripheral); R60.0 Localized edema; L08.89 Other specified local infections of the skin and subcutaneous tissue; Z79.2 Long term (current) use of antibiotics; Z91.199 Patient's noncompliance with other medical treatment and regimen due to unspecified reason | CPT/HCPCS: 11042; 99213 ==

== ENCOUNTER → 2023-12-17 14:46 | Outpatient (CLI) | payer MEDICARE, MEDICAID, SELFPAY | LOC: WC 14:47 | PROVIDERS: Visit Provider Nurse Practitioner Family | DX: L97.312 Non-pressure chronic ulcer of right ankle with fat layer exposed (principal); I87.2 Venous insufficiency (chronic) (peripheral); R23.4 Changes in skin texture; R60.0 Localized edema; Z91.199 Patient's noncompliance with other medical treatment and regimen due to unspecified reason; I25.10 Atherosclerotic heart disease of native coronary artery without angina pectoris | CPT/HCPCS: 11042; 99213; 99214 ==

== ENCOUNTER → 2023-12-22 14:00 | Outpatient (CLI) | payer MEDICARE, MEDICAID, SELFPAY | LOC: WC 14:06 | PROVIDERS: Visit Provider Surgery | DX: L97.312 Non-pressure chronic ulcer of right ankle with fat layer exposed (principal); I87.2 Venous insufficiency (chronic) (peripheral); R60.0 Localized edema; R23.4 Changes in skin texture; Z91.199 Patient's noncompliance with other medical treatment and regimen due to unspecified reason; I25.10 Atherosclerotic heart disease of native coronary artery without angina pectoris | CPT/HCPCS: 11042 ==

== ENCOUNTER → 2023-12-25 13:20 | Outpatient (CLI) | payer MEDICARE, MEDICAID, SELFPAY | LOC: WC 13:29 | PROVIDERS: Visit Provider Nurse Practitioner Family | DX: L97.812 Non-pressure chronic ulcer of other part of right lower leg with fat layer exposed (principal); I87.2 Venous insufficiency (chronic) (peripheral); R60.0 Localized edema; R23.4 Changes in skin texture | CPT/HCPCS: 29580 ==

== ENCOUNTER → 2023-12-30 14:37 | Outpatient (CLI) | payer MEDICARE, MEDICAID, SELFPAY | PROVIDERS: Visit Provider Surgery | DX: L97.312 Non-pressure chronic ulcer of right ankle with fat layer exposed (principal); I87.2 Venous insufficiency (chronic) (peripheral); R60.0 Localized edema; R23.4 Changes in skin texture; Z91.199 Patient's noncompliance with other medical treatment and regimen due to unspecified reason; I25.10 Atherosclerotic heart disease of native coronary artery without angina pectoris; Z79.2 Long term (current) use of antibiotics | CPT/HCPCS: 11042; 87070; 87075; 87205; 99213 ==

== ENCOUNTER → 2024-01-05 14:53 | Outpatient (CLI) | payer MEDICARE, MEDICAID, SELFPAY | LOC: WC 14:55 | PROVIDERS: Visit Provider Surgery | DX: L97.312 Non-pressure chronic ulcer of right ankle with fat layer exposed (principal); I87.2 Venous insufficiency (chronic) (peripheral); R60.0 Localized edema; R23.4 Changes in skin texture; G62.9 Polyneuropathy, unspecified; I25.10 Atherosclerotic heart disease of native coronary artery without angina pectoris; Z91.199 Patient's noncompliance with other medical treatment and regimen due to unspecified reason | CPT/HCPCS: 11042 ==

== ENCOUNTER → 2024-01-12 15:13 | Outpatient (CLI) | payer MEDICARE, MEDICAID, SELFPAY | LOC: WC 15:14 | PROVIDERS: Visit Provider Surgery | DX: L97.312 Non-pressure chronic ulcer of right ankle with fat layer exposed (principal); I87.2 Venous insufficiency (chronic) (peripheral); R60.0 Localized edema; R23.4 Changes in skin texture; I25.10 Atherosclerotic heart disease of native coronary artery without angina pectoris; Z91.199 Patient's noncompliance with other medical treatment and regimen due to unspecified reason | CPT/HCPCS: 11042 ==

== ENCOUNTER → 2024-01-14 15:51 | Outpatient (CLI) | payer MEDICARE, MEDICAID, SELFPAY | LOC: WC 15:52 | PROVIDERS: Visit Provider Surgery | DX: L97.812 Non-pressure chronic ulcer of other part of right lower leg with fat layer exposed (principal); I87.2 Venous insufficiency (chronic) (peripheral); R60.0 Localized edema; R23.4 Changes in skin texture | CPT/HCPCS: 29581 ==

== ENCOUNTER → 2024-01-19 13:42 | Outpatient (CLI) | payer MEDICARE, MEDICAID, SELFPAY | LOC: WC 13:42 | PROVIDERS: Visit Provider Surgery | DX: L97.312 Non-pressure chronic ulcer of right ankle with fat layer exposed (principal); I87.2 Venous insufficiency (chronic) (peripheral); R60.0 Localized edema; Z91.199 Patient's noncompliance with other medical treatment and regimen due to unspecified reason; I25.10 Atherosclerotic heart disease of native coronary artery without angina pectoris | CPT/HCPCS: 11042 ==

== ENCOUNTER → 2024-01-21 14:44 | Outpatient (CLI) | payer MEDICARE, MEDICAID, SELFPAY | LOC: WC 14:50 | PROVIDERS: Visit Provider Surgery | DX: L97.812 Non-pressure chronic ulcer of other part of right lower leg with fat layer exposed (principal); I87.2 Venous insufficiency (chronic) (peripheral); R60.0 Localized edema | CPT/HCPCS: 29581 ==

== ENCOUNTER → 2024-01-25 14:30 | Outpatient (CLI) | payer MEDICARE, MEDICAID, SELFPAY | LOC: WC 14:31 | PROVIDERS: Visit Provider Surgery | DX: L97.312 Non-pressure chronic ulcer of right ankle with fat layer exposed (principal); I87.2 Venous insufficiency (chronic) (peripheral); R60.0 Localized edema; I25.10 Atherosclerotic heart disease of native coronary artery without angina pectoris; Z91.199 Patient's noncompliance with other medical treatment and regimen due to unspecified reason | CPT/HCPCS: 11042; 99213 ==

== ENCOUNTER → 2024-01-28 14:17 | Outpatient (CLI) | payer MEDICARE, MEDICAID, SELFPAY | LOC: WC 14:25 | PROVIDERS: Visit Provider Surgery | DX: L97.812 Non-pressure chronic ulcer of other part of right lower leg with fat layer exposed (principal); I87.2 Venous insufficiency (chronic) (peripheral); R60.0 Localized edema | CPT/HCPCS: 29581 ==

== ENCOUNTER → 2024-02-01 14:55 | Outpatient (CLI) | payer MEDICARE, MEDICAID, SELFPAY | LOC: WC 14:56 | PROVIDERS: Visit Provider Surgery | DX: L97.312 Non-pressure chronic ulcer of right ankle with fat layer exposed (principal); I87.2 Venous insufficiency (chronic) (peripheral); R60.0 Localized edema; I25.10 Atherosclerotic heart disease of native coronary artery without angina pectoris | CPT/HCPCS: 11042 ==

== ENCOUNTER → 2024-02-04 15:42 | Outpatient (CLI) | payer MEDICARE, MEDICAID, SELFPAY | PROVIDERS: Visit Provider Surgery | DX: L97.812 Non-pressure chronic ulcer of other part of right lower leg with fat layer exposed (principal); I87.2 Venous insufficiency (chronic) (peripheral); R60.0 Localized edema; R23.4 Changes in skin texture | CPT/HCPCS: 29581; 99213 ==

== ENCOUNTER → 2024-02-08 15:45 | Outpatient (CLI) | payer MEDICARE, MEDICAID, SELFPAY | PROVIDERS: Visit Provider Surgery | DX: L97.312 Non-pressure chronic ulcer of right ankle with fat layer exposed (principal); I87.2 Venous insufficiency (chronic) (peripheral); R60.0 Localized edema; I25.10 Atherosclerotic heart disease of native coronary artery without angina pectoris; Z91.199 Patient's noncompliance with other medical treatment and regimen due to unspecified reason | CPT/HCPCS: 11042 ==

== ENCOUNTER → 2024-02-11 15:18 | Outpatient (CLI) | payer MEDICARE, MEDICAID, SELFPAY | LOC: WC 15:19 | PROVIDERS: Visit Provider Surgery | DX: L81.2 Freckles (principal); I87.2 Venous insufficiency (chronic) (peripheral); R60.0 Localized edema | CPT/HCPCS: 29581 ==

== ENCOUNTER → 2024-02-15 15:24 | Outpatient (CLI) | payer MEDICARE, MEDICAID, SELFPAY | LOC: WC 15:24 | PROVIDERS: Visit Provider Surgery | DX: L97.312 Non-pressure chronic ulcer of right ankle with fat layer exposed (principal); I87.2 Venous insufficiency (chronic) (peripheral); R60.0 Localized edema; I25.10 Atherosclerotic heart disease of native coronary artery without angina pectoris | CPT/HCPCS: 11042 ==

== ENCOUNTER → 2024-02-18 14:38 | Outpatient (CLI) | payer MEDICARE, MEDICAID, SELFPAY | LOC: WC 14:39 | PROVIDERS: Visit Provider Surgery | DX: L97.812 Non-pressure chronic ulcer of other part of right lower leg with fat layer exposed (principal); I87.2 Venous insufficiency (chronic) (peripheral); R60.0 Localized edema; R23.4 Changes in skin texture | CPT/HCPCS: 29581 ==

== ENCOUNTER → 2024-02-22 14:31 | Outpatient (CLI) | payer MEDICARE, MEDICAID, SELFPAY | LOC: WC 14:32 | PROVIDERS: Visit Provider Surgery | DX: L97.312 Non-pressure chronic ulcer of right ankle with fat layer exposed (principal); I87.2 Venous insufficiency (chronic) (peripheral); R60.0 Localized edema; R23.4 Changes in skin texture; Z91.199 Patient's noncompliance with other medical treatment and regimen due to unspecified reason; I25.10 Atherosclerotic heart disease of native coronary artery without angina pectoris | CPT/HCPCS: 11042; 99213 ==

== ENCOUNTER → 2024-02-25 14:35 | Outpatient (CLI) | payer MEDICARE, MEDICAID, SELFPAY | LOC: WC 14:37 | PROVIDERS: Visit Provider Surgery | DX: L97.812 Non-pressure chronic ulcer of other part of right lower leg with fat layer exposed (principal); I87.2 Venous insufficiency (chronic) (peripheral); R60.0 Localized edema | CPT/HCPCS: 29581; 99212 ==

== ENCOUNTER → 2024-02-29 14:49 | Outpatient (CLI) | payer MEDICARE, MEDICAID, SELFPAY | LOC: WC 14:51 | PROVIDERS: Visit Provider Surgery | DX: L97.312 Non-pressure chronic ulcer of right ankle with fat layer exposed (principal); I87.2 Venous insufficiency (chronic) (peripheral); R60.0 Localized edema; R23.4 Changes in skin texture; M79.661 Pain in right lower leg; Z91.199 Patient's noncompliance with other medical treatment and regimen due to unspecified reason | CPT/HCPCS: 11042 ==

== ENCOUNTER → 2024-03-03 08:14 | Outpatient (CLI) | payer MEDICARE, MEDICAID, SELFPAY | PROVIDERS: Visit Provider Surgery | DX: L97.812 Non-pressure chronic ulcer of other part of right lower leg with fat layer exposed (principal); I87.2 Venous insufficiency (chronic) (peripheral); R60.0 Localized edema; R23.4 Changes in skin texture | CPT/HCPCS: 29581 ==

== ENCOUNTER → 2024-03-08 15:14 | Outpatient (CLI) | payer MEDICARE, MEDICAID, SELFPAY | PROVIDERS: Visit Provider Surgery | DX: L97.312 Non-pressure chronic ulcer of right ankle with fat layer exposed (principal); I87.2 Venous insufficiency (chronic) (peripheral); R60.0 Localized edema; I25.10 Atherosclerotic heart disease of native coronary artery without angina pectoris | CPT/HCPCS: 11042; 99213 ==

== ENCOUNTER → 2024-03-10 09:34 | Outpatient (CLI) | payer MEDICARE, MEDICAID, SELFPAY | LOC: WC 09:35 | PROVIDERS: Visit Provider Surgery | DX: L97.812 Non-pressure chronic ulcer of other part of right lower leg with fat layer exposed (principal); I87.2 Venous insufficiency (chronic) (peripheral); R60.0 Localized edema; R23.4 Changes in skin texture | CPT/HCPCS: 29581 ==

== ENCOUNTER → 2024-03-14 14:00 | Outpatient (CLI) | payer MEDICARE, MEDICAID, SELFPAY | LOC: WC 14:01 | PROVIDERS: Visit Provider Surgery | DX: L97.312 Non-pressure chronic ulcer of right ankle with fat layer exposed (principal); I87.2 Venous insufficiency (chronic) (peripheral); R60.0 Localized edema; I25.10 Atherosclerotic heart disease of native coronary artery without angina pectoris; Z91.199 Patient's noncompliance with other medical treatment and regimen due to unspecified reason | CPT/HCPCS: 11042; 99213 ==

== ENCOUNTER → 2024-03-17 14:01 | Outpatient (CLI) | payer MEDICARE, MEDICAID, SELFPAY | LOC: WC 14:03 | PROVIDERS: Visit Provider Surgery | DX: L97.812 Non-pressure chronic ulcer of other part of right lower leg with fat layer exposed (principal); I87.2 Venous insufficiency (chronic) (peripheral); R60.0 Localized edema | CPT/HCPCS: 29581 ==

== ENCOUNTER → 2024-03-21 15:53 | Outpatient (CLI) | payer MEDICARE, MEDICAID, SELFPAY | LOC: WC 15:54 | PROVIDERS: Visit Provider Surgery | DX: L97.312 Non-pressure chronic ulcer of right ankle with fat layer exposed (principal); I87.2 Venous insufficiency (chronic) (peripheral); R60.0 Localized edema; Z91.199 Patient's noncompliance with other medical treatment and regimen due to unspecified reason; I25.10 Atherosclerotic heart disease of native coronary artery without angina pectoris | CPT/HCPCS: 11042 ==

== ENCOUNTER → 2024-03-24 14:05 | Outpatient (CLI) | payer MEDICARE, MEDICAID, SELFPAY | PROVIDERS: Visit Provider Physician Assistant | DX: L97.812 Non-pressure chronic ulcer of other part of right lower leg with fat layer exposed (principal); I87.2 Venous insufficiency (chronic) (peripheral); R60.0 Localized edema | CPT/HCPCS: 29581 ==

== ENCOUNTER → 2024-03-31 15:11 | Outpatient (CLI) | payer MEDICARE, MEDICAID, SELFPAY | PROVIDERS: Visit Provider Surgery | DX: L97.312 Non-pressure chronic ulcer of right ankle with fat layer exposed (principal); I87.2 Venous insufficiency (chronic) (peripheral); R60.0 Localized edema; R23.4 Changes in skin texture; G62.9 Polyneuropathy, unspecified; I25.10 Atherosclerotic heart disease of native coronary artery without angina pectoris; R53.82 Chronic fatigue, unspecified; Z91.199 Patient's noncompliance with other medical treatment and regimen due to unspecified reason | CPT/HCPCS: 11042; 99213 ==

== ENCOUNTER → 2024-04-05 09:43 | Outpatient (CLI) | payer MEDICARE, MEDICAID, SELFPAY | PROVIDERS: Visit Provider Surgery | DX: L97.812 Non-pressure chronic ulcer of other part of right lower leg with fat layer exposed (principal); I87.2 Venous insufficiency (chronic) (peripheral); R60.0 Localized edema | CPT/HCPCS: 29581 ==

== ENCOUNTER → 2024-04-07 13:41 | Outpatient (CLI) | payer MEDICARE, MEDICAID, SELFPAY | LOC: WC 13:42 | PROVIDERS: Visit Provider Surgery | DX: L97.312 Non-pressure chronic ulcer of right ankle with fat layer exposed (principal); I87.2 Venous insufficiency (chronic) (peripheral); R60.0 Localized edema; Z91.199 Patient's noncompliance with other medical treatment and regimen due to unspecified reason; I25.10 Atherosclerotic heart disease of native coronary artery without angina pectoris | CPT/HCPCS: 11042 ==

== ENCOUNTER → 2024-04-12 14:53 | Outpatient (CLI) | payer MEDICARE, MEDICAID, SELFPAY | PROVIDERS: Visit Provider Surgery | DX: L97.312 Non-pressure chronic ulcer of right ankle with fat layer exposed (principal); I87.2 Venous insufficiency (chronic) (peripheral); R60.0 Localized edema; G62.9 Polyneuropathy, unspecified; I25.10 Atherosclerotic heart disease of native coronary artery without angina pectoris; Z91.199 Patient's noncompliance with other medical treatment and regimen due to unspecified reason | CPT/HCPCS: 11042 ==

== ENCOUNTER → 2024-04-12 16:52 | Outpatient (CLI) | payer MEDICARE, MEDICAID, SELFPAY ==
--- NOTE | 2024-04-12 16:53 | DI.RAD.S_ITS ---
PROCEDURE: XR ANKLE RT MIN 3V INDICATIONS: non-healing ulcer on right medial ankle TECHNIQUE: 3 views of the ankle were acquired. COMPARISON: None. FINDINGS: Bones: No fractures or dislocations. Slight cortical thinning involving medial cortex of medial malleolus is seen. Ankle mortise is normally aligned. Mild midfoot and hindfoot joint osteoarthritic changes are seen. No suspicious bony lesions. Soft tissues: Extensive vascular calcifications within lower leg soft tissue are seen. Soft tissue swelling over medial malleolus is seen. No tibiotalar joint effusion. Achilles tendon appears normal. IMPRESSION: No acute ankle fracture or dislocation. Soft tissue swelling over medial malleolus with underlying cortical thinning concerning for early osteomyelitis in this area. Midfoot and hindfoot joint osteoarthritis. Dictated by: Prakash Mckinley M.D. on 04/13/2024 at 10:50 Approved by: Prakash Mckinley M.D. on 04/13/2024 at 10:53
== END ==
PROVIDERS: Referring Provider Surgery; Visit Provider Surgery
DX: L97.319 Non-pressure chronic ulcer of right ankle with unspecified severity (principal); M19.071 Primary osteoarthritis, right ankle and foot; I70.201 Unspecified atherosclerosis of native arteries of extremities, right leg; R22.41 Localized swelling, mass and lump, right lower limb
CPT/HCPCS: 73610

== ENCOUNTER → 2024-04-19 14:11 | Outpatient (CLI) | payer MEDICARE, MEDICAID, SELFPAY | PROVIDERS: Visit Provider Surgery | DX: L97.312 Non-pressure chronic ulcer of right ankle with fat layer exposed (principal); I87.2 Venous insufficiency (chronic) (peripheral); R60.0 Localized edema; I25.10 Atherosclerotic heart disease of native coronary artery without angina pectoris; Z91.199 Patient's noncompliance with other medical treatment and regimen due to unspecified reason | CPT/HCPCS: 11042; 99213 ==

== ENCOUNTER → 2024-04-19 16:21 | Outpatient (CLI) | payer MEDICARE, MEDICAID, SELFPAY ==
--- NOTE | 2024-04-19 16:22 | DI.MRI.S_ITS ---
PROCEDURE: MR ANKLE RT WO/W CON INDICATIONS: Eval for osteo TECHNIQUE: Noncontrast sagittal T1 spin echo and T2 fast spin echo with fat saturation, axial proton density fast spin echo and T2 fast spin echo with fat saturation, axial T1 spin echo with fat saturation, coronal T1 spin echo and T2 fast spin echo with fat saturation through the ankle/hindfoot. Post-contrast axial, coronal, and sagittal T1 spin echo with fat saturation through the ankle/hindfoot. COMPARISON: [facility], CR, XR ANKLE RT MIN 3V, 04/12/2024, 17:11. FINDINGS: Image quality: Excellent Bones: No marrow edema. No osteomyelitis in the ankle. Marrow signal is normal for age. Tendons: The flexors, extensors, and peroneal tendons are unremarkable. Mild tendinosis of the distal Achilles tendon, without tear. Ligaments: The anterior and posterior tibiofibular ligament is intact. Prior sprain of the anterior talofibular ligament. The posterior talofibular ligament is intact. The calcaneofibular ligament is intact. The deep portion of the deltoid ligament is intact. Sinus tarsi: No fibrosis. Plantar fascia: Unremarkable. Muscles: Mild fatty atrophy. Other findings: Skin thickening of the medial ankle. Extensive varicose veins about the ankle. No drainable fluid collection. No significant tibiotalar or posterior subtalar effusion. IMPRESSION: No osteomyelitis in the ankle. Extensive varicose vein with skin thickening , most pronounced in the medial ankle. Dictated by: Tiny Mirza M.D. on 04/20/2024 at 10:29 Approved by: Tiny Mirza M.D. on 04/20/2024 at 10:39
== END ==
PROVIDERS: Referring Provider Surgery; Visit Provider Surgery
DX: L97.312 Non-pressure chronic ulcer of right ankle with fat layer exposed (principal); I83.91 Asymptomatic varicose veins of right lower extremity; I87.2 Venous insufficiency (chronic) (peripheral); R60.0 Localized edema; I25.10 Atherosclerotic heart disease of native coronary artery without angina pectoris; Z91.199 Patient's noncompliance with other medical treatment and regimen due to unspecified reason
CPT/HCPCS: 11042; 73723; A9579

== ENCOUNTER → 2024-04-26 14:45 | Outpatient (CLI) | payer MEDICARE, MEDICAID, SELFPAY | PROVIDERS: Visit Provider Surgery | DX: L97.312 Non-pressure chronic ulcer of right ankle with fat layer exposed (principal); I87.2 Venous insufficiency (chronic) (peripheral); R60.0 Localized edema; I25.10 Atherosclerotic heart disease of native coronary artery without angina pectoris; Z91.199 Patient's noncompliance with other medical treatment and regimen due to unspecified reason | CPT/HCPCS: 11042; 99213 ==

== ENCOUNTER → 2024-05-03 14:48 | Outpatient (CLI) | payer MEDICARE, MEDICAID, SELFPAY | LOC: WC 14:49 | PROVIDERS: Visit Provider Surgery | DX: L97.312 Non-pressure chronic ulcer of right ankle with fat layer exposed (principal); I87.2 Venous insufficiency (chronic) (peripheral); R60.0 Localized edema; R23.4 Changes in skin texture | CPT/HCPCS: 11042 ==

== ENCOUNTER → 2024-05-10 14:28 | Outpatient (CLI) | payer MEDICARE, MEDICAID, SELFPAY | PROVIDERS: Visit Provider Physician Assistant | DX: L97.312 Non-pressure chronic ulcer of right ankle with fat layer exposed (principal); I87.2 Venous insufficiency (chronic) (peripheral); R60.0 Localized edema; R23.4 Changes in skin texture; I25.10 Atherosclerotic heart disease of native coronary artery without angina pectoris; G62.9 Polyneuropathy, unspecified | CPT/HCPCS: 11042; 99213 ==

== ENCOUNTER → 2024-05-17 13:10 | Outpatient (CLI) | payer MEDICARE, MEDICAID, SELFPAY | LOC: WC 13:15 | PROVIDERS: Visit Provider Surgery | DX: L97.312 Non-pressure chronic ulcer of right ankle with fat layer exposed (principal); I87.2 Venous insufficiency (chronic) (peripheral); R60.0 Localized edema; I25.10 Atherosclerotic heart disease of native coronary artery without angina pectoris; Z91.199 Patient's noncompliance with other medical treatment and regimen due to unspecified reason | CPT/HCPCS: 11042 ==

== ENCOUNTER → 2024-05-24 11:16 | Outpatient (CLI) | payer MEDICARE, MEDICAID, SELFPAY | LOC: WC 11:17 | PROVIDERS: Visit Provider Surgery | DX: L97.312 Non-pressure chronic ulcer of right ankle with fat layer exposed (principal); I87.2 Venous insufficiency (chronic) (peripheral); R60.0 Localized edema; I25.10 Atherosclerotic heart disease of native coronary artery without angina pectoris; Z91.199 Patient's noncompliance with other medical treatment and regimen due to unspecified reason | CPT/HCPCS: 11042 ==

== ENCOUNTER → 2024-05-31 11:20 | Outpatient (CLI) | payer MEDICARE, MEDICAID, SELFPAY | LOC: WC 11:21 | PROVIDERS: Visit Provider Surgery | DX: I87.2 Venous insufficiency (chronic) (peripheral) (principal); L97.312 Non-pressure chronic ulcer of right ankle with fat layer exposed; R23.4 Changes in skin texture; R60.0 Localized edema; L98.8 Other specified disorders of the skin and subcutaneous tissue | CPT/HCPCS: 11042 ==

== ENCOUNTER → 2024-06-07 10:32 | Outpatient (CLI) | payer MEDICARE, MEDICAID, SELFPAY | PROVIDERS: Visit Provider Surgery | DX: L97.312 Non-pressure chronic ulcer of right ankle with fat layer exposed (principal); I87.2 Venous insufficiency (chronic) (peripheral); R60.0 Localized edema; Z91.199 Patient's noncompliance with other medical treatment and regimen due to unspecified reason | CPT/HCPCS: 11042 ==

== ENCOUNTER → 2024-06-14 13:04 | Outpatient (CLI) | payer MEDICARE, MEDICAID, SELFPAY | PROVIDERS: Referring Provider Surgery; Visit Provider Surgery | DX: L97.312 Non-pressure chronic ulcer of right ankle with fat layer exposed (principal) | CPT/HCPCS: 11042; 87070; 87075; 87205; 99213 ==

== ENCOUNTER → 2024-06-14 15:22 | Outpatient (CLI) | payer MEDICARE, MEDICAID, SELFPAY | PROVIDERS: Visit Provider Surgery | DX: L97.312 Non-pressure chronic ulcer of right ankle with fat layer exposed (principal); I87.2 Venous insufficiency (chronic) (peripheral); R60.0 Localized edema; Z91.199 Patient's noncompliance with other medical treatment and regimen due to unspecified reason; I25.10 Atherosclerotic heart disease of native coronary artery without angina pectoris | CPT/HCPCS: 11042; 87070; 87075; 87205; 99213 ==

== ENCOUNTER → 2024-06-23 12:10 | Outpatient (CLI) | payer MEDICARE, MEDICAID, SELFPAY ==
--- NOTE | 2024-06-23 12:15 | DI.US.S_ITS ---
PROCEDURE: US VENOUS INSUFFICIENCY LTD INDICATIONS: evaluate for venous reflux in RLE TECHNIQUE: Real time scanning was performed of the lower extremity venous system, with imaging documentation, as well as Color and pulse Doppler interrogation. COMPARISON: None. FINDINGS: RIGHT LOWER EXTREMITY: The deep veins are normally compressible, and free of intraluminal thrombus. Color and pulse Doppler demonstrate normal intravascular flow. There is normal augmentation with distal compression maneuver. Greater saphenous vein (GSV): Normally 4 mm or less in diameter, with any reflux less than 0.5 seconds. Saphenofemoral junction (SFJ): 7 mm. No reflux. GSV in the thigh is not visualized secondary to history of ablation. Calf GSV: 3 mm, and reflux of 3.6 seconds. Anterior accessory GSV (AAGSV): Anatomic variant not present across anterior thigh. Small saphenous vein (SSV): Posterior calf, draining into popliteal vein. Posterior calf: 2 mm. No reflux. Vein of Giacomini (posterior thigh connection between GSV and SSV): Anatomic variant not seen. Information Clerk Cashier veins: Calf: Location posterior calf, diameter 3 mm. Reflux 2.4 seconds IMPRESSION: 1. Right GSV in the thigh is absent from prior ablation. Venous insufficiency involving the GSV in the upper calf. 2. Information Clerk Cashier reflux within the posterior calf. Dictated by: Goldy Lin M.D. on 06/23/2024 at 16:11 Approved by: Goldy Lin M.D. on 06/23/2024 at 16:14
== END ==
PROVIDERS: Referring Provider Surgery; Visit Provider Surgery
DX: L97.919 Non-pressure chronic ulcer of unspecified part of right lower leg with unspecified severity (principal); I87.2 Venous insufficiency (chronic) (peripheral)
CPT/HCPCS: 93971

== ENCOUNTER → 2024-06-23 14:26 | Outpatient (CLI) | payer MEDICARE, MEDICAID, SELFPAY | PROVIDERS: Visit Provider Surgery | DX: L97.312 Non-pressure chronic ulcer of right ankle with fat layer exposed (principal); I87.2 Venous insufficiency (chronic) (peripheral); R60.0 Localized edema; Z91.199 Patient's noncompliance with other medical treatment and regimen due to unspecified reason | CPT/HCPCS: 97602; 99213 ==

== ENCOUNTER → 2024-06-28 10:08 | Outpatient (CLI) | payer MEDICARE, MEDICAID, SELFPAY | LOC: WC 10:10 | PROVIDERS: Visit Provider Surgery | DX: L97.312 Non-pressure chronic ulcer of right ankle with fat layer exposed (principal); I87.2 Venous insufficiency (chronic) (peripheral); R60.0 Localized edema; Z91.199 Patient's noncompliance with other medical treatment and regimen due to unspecified reason | CPT/HCPCS: 97597; 99213 ==

== ENCOUNTER → 2024-07-05 13:04 | Outpatient (CLI) | payer MEDICARE, MEDICAID, SELFPAY | LOC: WC 13:05 | PROVIDERS: Visit Provider Surgery | DX: L97.312 Non-pressure chronic ulcer of right ankle with fat layer exposed (principal); I87.2 Venous insufficiency (chronic) (peripheral); R60.0 Localized edema; Z91.199 Patient's noncompliance with other medical treatment and regimen due to unspecified reason; R23.4 Changes in skin texture | CPT/HCPCS: 97602; 99213 ==

== ENCOUNTER → 2024-07-12 15:14 | Outpatient (CLI) | payer MEDICARE, MEDICAID, SELFPAY | PROVIDERS: Visit Provider Surgery | DX: L97.312 Non-pressure chronic ulcer of right ankle with fat layer exposed (principal); I87.2 Venous insufficiency (chronic) (peripheral); R60.0 Localized edema; Z91.199 Patient's noncompliance with other medical treatment and regimen due to unspecified reason | CPT/HCPCS: 11042 ==

== ENCOUNTER → 2024-07-21 14:27 | Outpatient (CLI) | payer MEDICARE, MEDICAID, SELFPAY | LOC: WC 14:28 | PROVIDERS: Visit Provider Surgery | DX: L97.312 Non-pressure chronic ulcer of right ankle with fat layer exposed (principal); I87.2 Venous insufficiency (chronic) (peripheral); R60.0 Localized edema; Z91.199 Patient's noncompliance with other medical treatment and regimen due to unspecified reason | CPT/HCPCS: 11042; 99213 ==

== ENCOUNTER → 2024-07-28 14:33 | Outpatient (CLI) | payer MEDICARE, MEDICAID, SELFPAY | LOC: WC 14:34 | PROVIDERS: Visit Provider Surgery | DX: L97.312 Non-pressure chronic ulcer of right ankle with fat layer exposed (principal); I87.2 Venous insufficiency (chronic) (peripheral); Z91.199 Patient's noncompliance with other medical treatment and regimen due to unspecified reason; R60.0 Localized edema; R21 Rash and other nonspecific skin eruption; R23.4 Changes in skin texture | CPT/HCPCS: 11042 ==

== ENCOUNTER → 2024-08-04 14:14 | Outpatient (CLI) | payer MEDICARE, MEDICAID, SELFPAY | LOC: WC 14:15 | PROVIDERS: Visit Provider Surgery | DX: L97.312 Non-pressure chronic ulcer of right ankle with fat layer exposed (principal); I87.2 Venous insufficiency (chronic) (peripheral); R60.0 Localized edema; R21 Rash and other nonspecific skin eruption | CPT/HCPCS: 11042 ==

== ENCOUNTER → 2024-08-09 11:12 | Outpatient (CLI) | payer MEDICARE, MEDICAID, SELFPAY | LOC: WC 11:12 | PROVIDERS: Visit Provider Surgery | DX: L97.312 Non-pressure chronic ulcer of right ankle with fat layer exposed (principal); I87.2 Venous insufficiency (chronic) (peripheral); R60.0 Localized edema; Z91.199 Patient's noncompliance with other medical treatment and regimen due to unspecified reason | CPT/HCPCS: 11042 ==

== ENCOUNTER → 2024-08-16 10:42 | Outpatient (CLI) | payer MEDICARE, MEDICAID, SELFPAY | LOC: WC 10:43 | PROVIDERS: Visit Provider Surgery | DX: I87.2 Venous insufficiency (chronic) (peripheral) (principal); L97.812 Non-pressure chronic ulcer of other part of right lower leg with fat layer exposed; L98.8 Other specified disorders of the skin and subcutaneous tissue; R60.0 Localized edema; G60.9 Hereditary and idiopathic neuropathy, unspecified | CPT/HCPCS: 11042; 99213 ==

== ENCOUNTER → 2024-08-23 14:23 | Outpatient (CLI) | payer MEDICARE, MEDICAID, SELFPAY | PROVIDERS: Visit Provider Surgery | DX: L97.312 Non-pressure chronic ulcer of right ankle with fat layer exposed (principal); I87.2 Venous insufficiency (chronic) (peripheral); R60.0 Localized edema; G62.9 Polyneuropathy, unspecified; I25.10 Atherosclerotic heart disease of native coronary artery without angina pectoris | CPT/HCPCS: 11042 ==

== ENCOUNTER → 2024-08-30 14:13 | Outpatient (CLI) | payer MEDICARE, MEDICAID, SELFPAY | PROVIDERS: Visit Provider Surgery | DX: L97.312 Non-pressure chronic ulcer of right ankle with fat layer exposed (principal); I87.2 Venous insufficiency (chronic) (peripheral); R60.0 Localized edema; L08.89 Other specified local infections of the skin and subcutaneous tissue; Z79.2 Long term (current) use of antibiotics | CPT/HCPCS: 11042; 87070; 87075; 87077; 87186; 87205; 99212; 99213 ==

== ENCOUNTER → 2024-09-06 13:39 | Outpatient (CLI) | payer MEDICARE, MEDICAID, SELFPAY | PROVIDERS: Visit Provider Surgery | DX: L97.312 Non-pressure chronic ulcer of right ankle with fat layer exposed (principal); I87.2 Venous insufficiency (chronic) (peripheral); R60.0 Localized edema; R23.4 Changes in skin texture; Z91.199 Patient's noncompliance with other medical treatment and regimen due to unspecified reason | CPT/HCPCS: 11042 ==

== ENCOUNTER → 2024-09-13 15:26 | Outpatient (CLI) | payer MEDICARE, MEDICAID, SELFPAY | PROVIDERS: Visit Provider Surgery | DX: L97.312 Non-pressure chronic ulcer of right ankle with fat layer exposed (principal); I87.2 Venous insufficiency (chronic) (peripheral); R60.0 Localized edema; R21 Rash and other nonspecific skin eruption; I25.10 Atherosclerotic heart disease of native coronary artery without angina pectoris | CPT/HCPCS: 11042; 99213 ==

== ENCOUNTER → 2024-09-19 14:28 | Outpatient (CLI) | payer MEDICARE, MEDICAID, SELFPAY | PROVIDERS: Visit Provider Surgery | DX: L97.312 Non-pressure chronic ulcer of right ankle with fat layer exposed (principal); I87.2 Venous insufficiency (chronic) (peripheral); R60.0 Localized edema; I25.10 Atherosclerotic heart disease of native coronary artery without angina pectoris; Z91.199 Patient's noncompliance with other medical treatment and regimen due to unspecified reason | CPT/HCPCS: 11042; 99213 ==

== ENCOUNTER → 2024-09-27 14:02 | Outpatient (CLI) | payer MEDICARE, MEDICAID, SELFPAY | LOC: WC 14:04 | PROVIDERS: Visit Provider Surgery | DX: L97.312 Non-pressure chronic ulcer of right ankle with fat layer exposed (principal); I87.2 Venous insufficiency (chronic) (peripheral); R60.0 Localized edema; L53.9 Erythematous condition, unspecified; Z91.199 Patient's noncompliance with other medical treatment and regimen due to unspecified reason | CPT/HCPCS: 11042 ==

== ENCOUNTER → 2024-10-03 08:41 | Outpatient (CLI) | payer MEDICARE, MEDICAID, SELFPAY | PROVIDERS: Visit Provider Physician Assistant | DX: L97.812 Non-pressure chronic ulcer of other part of right lower leg with fat layer exposed (principal); I87.2 Venous insufficiency (chronic) (peripheral); L53.9 Erythematous condition, unspecified; R60.0 Localized edema | CPT/HCPCS: 29581 ==

== ENCOUNTER → 2024-10-14 13:30 | Outpatient (CLI) | payer MEDICARE, MEDICAID, SELFPAY | PROVIDERS: Visit Provider Physician Assistant | DX: L97.812 Non-pressure chronic ulcer of other part of right lower leg with fat layer exposed (principal); I87.2 Venous insufficiency (chronic) (peripheral); L53.9 Erythematous condition, unspecified; R60.0 Localized edema; R21 Rash and other nonspecific skin eruption | CPT/HCPCS: 11042; 99213 ==

== ENCOUNTER → 2024-10-18 13:26 | Outpatient (CLI) | payer MEDICARE, MEDICAID, SELFPAY | PROVIDERS: Visit Provider Surgery | DX: L97.312 Non-pressure chronic ulcer of right ankle with fat layer exposed (principal); I87.2 Venous insufficiency (chronic) (peripheral); R60.0 Localized edema; L98.8 Other specified disorders of the skin and subcutaneous tissue; L53.9 Erythematous condition, unspecified; R21 Rash and other nonspecific skin eruption; L08.89 Other specified local infections of the skin and subcutaneous tissue; Z79.2 Long term (current) use of antibiotics | CPT/HCPCS: 11042; 87070; 87075; 87077; 87147; 87186; 87205; 99213 ==

== ENCOUNTER → 2024-10-25 14:12 | Outpatient (CLI) | payer MEDICARE, MEDICAID, SELFPAY | LOC: WC 14:14 | PROVIDERS: Visit Provider Surgery | DX: L97.312 Non-pressure chronic ulcer of right ankle with fat layer exposed (principal); I87.2 Venous insufficiency (chronic) (peripheral); L98.8 Other specified disorders of the skin and subcutaneous tissue; R60.0 Localized edema; L53.9 Erythematous condition, unspecified; Z91.199 Patient's noncompliance with other medical treatment and regimen due to unspecified reason; L84 Corns and callosities | CPT/HCPCS: 11042 ==

== ENCOUNTER → 2024-10-28 14:39 | Outpatient (CLI) | payer MEDICARE, MEDICAID, SELFPAY | PROVIDERS: Visit Provider Physician Assistant | DX: L97.812 Non-pressure chronic ulcer of other part of right lower leg with fat layer exposed (principal); I87.2 Venous insufficiency (chronic) (peripheral); R60.0 Localized edema; L53.9 Erythematous condition, unspecified | CPT/HCPCS: 29581 ==

== ENCOUNTER → 2024-11-01 14:12 | Outpatient (CLI) | payer MEDICARE, MEDICAID, SELFPAY | PROVIDERS: Visit Provider Surgery | DX: I87.2 Venous insufficiency (chronic) (peripheral) (principal); L97.812 Non-pressure chronic ulcer of other part of right lower leg with fat layer exposed; L53.8 Other specified erythematous conditions; L98.8 Other specified disorders of the skin and subcutaneous tissue | CPT/HCPCS: 11042 ==

== ENCOUNTER → 2024-11-04 13:29 | Outpatient (CLI) | payer MEDICARE, MEDICAID, SELFPAY | PROVIDERS: Visit Provider Physician Assistant | DX: I87.2 Venous insufficiency (chronic) (peripheral) (principal); L97.812 Non-pressure chronic ulcer of other part of right lower leg with fat layer exposed; R60.0 Localized edema | CPT/HCPCS: 29581 ==

== ENCOUNTER → 2024-11-08 13:48 | Outpatient (CLI) | payer MEDICARE, MEDICAID, SELFPAY | LOC: WC 13:49 | PROVIDERS: Visit Provider Surgery | DX: I87.2 Venous insufficiency (chronic) (peripheral) (principal); L97.812 Non-pressure chronic ulcer of other part of right lower leg with fat layer exposed; L98.8 Other specified disorders of the skin and subcutaneous tissue; R60.0 Localized edema; G60.9 Hereditary and idiopathic neuropathy, unspecified | CPT/HCPCS: 11042 ==

== ENCOUNTER → 2024-11-11 15:00 | Outpatient (CLI) | payer MEDICARE, MEDICAID, SELFPAY | LOC: WC 15:01 | PROVIDERS: Visit Provider Physician Assistant | DX: I87.2 Venous insufficiency (chronic) (peripheral) (principal); L97.812 Non-pressure chronic ulcer of other part of right lower leg with fat layer exposed; L98.8 Other specified disorders of the skin and subcutaneous tissue; R60.0 Localized edema | CPT/HCPCS: 29581 ==

== ENCOUNTER → 2024-11-15 13:32 | Outpatient (CLI) | payer MEDICARE, MEDICAID, SELFPAY | PROVIDERS: Visit Provider Surgery | DX: I87.2 Venous insufficiency (chronic) (peripheral) (principal); L97.312 Non-pressure chronic ulcer of right ankle with fat layer exposed; L98.8 Other specified disorders of the skin and subcutaneous tissue; G60.9 Hereditary and idiopathic neuropathy, unspecified; R60.0 Localized edema; Z91.199 Patient's noncompliance with other medical treatment and regimen due to unspecified reason | CPT/HCPCS: 11042; 99213 ==

== ENCOUNTER → 2024-11-18 14:45 | Outpatient (CLI) | payer MEDICARE, MEDICAID, SELFPAY | LOC: WC 14:46 | PROVIDERS: Visit Provider Physician Assistant | DX: I87.2 Venous insufficiency (chronic) (peripheral) (principal); L97.812 Non-pressure chronic ulcer of other part of right lower leg with fat layer exposed; L98.8 Other specified disorders of the skin and subcutaneous tissue; R60.0 Localized edema | CPT/HCPCS: 29581 ==

== ENCOUNTER → 2024-11-24 10:02 | Outpatient (CLI) | payer MEDICARE, MEDICAID, SELFPAY | LOC: WC 10:19 | PROVIDERS: Visit Provider Surgery | DX: L97.312 Non-pressure chronic ulcer of right ankle with fat layer exposed (principal); I87.2 Venous insufficiency (chronic) (peripheral); R60.0 Localized edema; L53.9 Erythematous condition, unspecified; Z91.199 Patient's noncompliance with other medical treatment and regimen due to unspecified reason | CPT/HCPCS: 11042; 99212 ==

== ENCOUNTER → 2024-11-29 13:41 | Outpatient (CLI) | payer MEDICARE, MEDICAID, SELFPAY | LOC: WC 13:48 | PROVIDERS: Visit Provider Surgery | DX: L97.312 Non-pressure chronic ulcer of right ankle with fat layer exposed (principal); L98.8 Other specified disorders of the skin and subcutaneous tissue; I87.2 Venous insufficiency (chronic) (peripheral); R60.0 Localized edema; L53.9 Erythematous condition, unspecified; Z91.199 Patient's noncompliance with other medical treatment and regimen due to unspecified reason; Z79.2 Long term (current) use of antibiotics | CPT/HCPCS: 11042; 87070; 87075; 87077; 87147; 87186; 87205; 99213 ==

== ENCOUNTER → 2024-12-02 14:48 | Outpatient (CLI) | payer MEDICARE, MEDICAID, SELFPAY | PROVIDERS: Visit Provider Surgery | DX: I87.2 Venous insufficiency (chronic) (peripheral) (principal); L97.812 Non-pressure chronic ulcer of other part of right lower leg with fat layer exposed; L53.8 Other specified erythematous conditions; L98.8 Other specified disorders of the skin and subcutaneous tissue | CPT/HCPCS: 29581 ==

== ENCOUNTER → 2024-12-06 14:26 | Outpatient (CLI) | payer MEDICARE, MEDICAID, SELFPAY | PROVIDERS: Visit Provider Surgery | DX: I87.2 Venous insufficiency (chronic) (peripheral) (principal); L97.312 Non-pressure chronic ulcer of right ankle with fat layer exposed; L53.8 Other specified erythematous conditions; L98.8 Other specified disorders of the skin and subcutaneous tissue | CPT/HCPCS: 11042 ==

== ENCOUNTER → 2024-12-09 14:54 | Outpatient (CLI) | payer MEDICARE, MEDICAID, SELFPAY | PROVIDERS: Visit Provider Physician Assistant | DX: I87.2 Venous insufficiency (chronic) (peripheral) (principal); L97.812 Non-pressure chronic ulcer of other part of right lower leg with fat layer exposed; L53.8 Other specified erythematous conditions; L98.8 Other specified disorders of the skin and subcutaneous tissue | CPT/HCPCS: 29581 ==

== ENCOUNTER → 2024-12-14 09:50 | Outpatient (CLI) | payer MEDICARE, MEDICAID, SELFPAY | PROVIDERS: Visit Provider Surgery | DX: I87.2 Venous insufficiency (chronic) (peripheral) (principal); L97.312 Non-pressure chronic ulcer of right ankle with fat layer exposed; L53.8 Other specified erythematous conditions; L98.8 Other specified disorders of the skin and subcutaneous tissue; R60.0 Localized edema; G60.9 Hereditary and idiopathic neuropathy, unspecified | CPT/HCPCS: 11042; 99213 ==

== ENCOUNTER → 2024-12-16 13:55 | Outpatient (CLI) | payer MEDICARE, MEDICAID, SELFPAY | PROVIDERS: Visit Provider Physician Assistant | DX: I87.2 Venous insufficiency (chronic) (peripheral) (principal); L97.812 Non-pressure chronic ulcer of other part of right lower leg with fat layer exposed; L53.8 Other specified erythematous conditions; L98.8 Other specified disorders of the skin and subcutaneous tissue; R60.0 Localized edema | CPT/HCPCS: 29581 ==

== ENCOUNTER → 2024-12-20 13:41 | Outpatient (CLI) | payer MEDICARE, MEDICAID, SELFPAY ==
--- NOTE | 2024-12-20 | OV.WND_ITS ---
PROGRESS NOTE DETAILS PATIENT NAME: MERLYN HANNA DATE: PATIENT NUMBER: [id number] CLINICIAN: QUIN LIZ R.N. PATIENT DATE OF : 1950 PHYSICIAN / BOWLING FLOOR DESK CLERK: WHITNEYSHERMAN PATIENT SUBJECTIVE CHIEF COMPLAINT THIS INFORMATION WAS OBTAINED FROM THE PATIENT. THE REDNESS IS TRAVELLING UP THE LEG. GENERAL NOTES VENOUS ULCER IN RIGHT LEG. INCREASED REDNESS AND SWELLING ABOVE COMPRESSION WRAP, MADE AWARE. ALLERGIES LAMISIL HPI THIS INFORMATION WAS OBTAINED FROM THE PATIENT. 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 THE PATIENT PREVIOUSLY HAD 7 APPLICATIONS WITH PURAPLY AND IS CURRENTLY RECEIVING PALLIATIVE WOUND CARE CONSISTING OF DRESSING CHANGES WITH URGO CLEAN WITH MULTILAYER COMPRESSION WRAP TWICE A WEEK. HE IS NOT CURRENTLY ON ANTIBIOTICS. THE PATIENT IS RECEIVING BARRIER CREAM TO THE PERIWOUND SKIN WITH EACH DRESSING CHANGE. THE PATIENT RECENTLY NOTED SOME SWELLING AND ERYTHEMA JUST ABOVE THE WRAP. PAST HISTORY IS REMARKABLE FOR PREVIOUS ABLATION OF THE RIGHT GREATER SAPHENOUS VEIN IN NOVEMBER 2016. PREVIOUS ABIS SHOW ADEQUATE PERFUSION FOR HEALING. HE DENIES HAVING ANY PAIN OR DISCOMFORT NOR HAS HE HAD ANY FEVER OR CHILLS. THE PATIENT REPORTS A GOOD APPETITE AND IS TAKING PROTEIN SUPPLEMENTS. ON EXAM TODAY THE ULCER MEASUREMENTS ARE LARGER AND THE TISSUE QUALITY DOES APPEAR TO BE IMPROVED. HE DOES HAVE EDEMA AND ERYTHEMA JUST ABOVE THE WRAP AND EXTENDING TOWARDS THE KNEE. VENOUS ULTRASOUND SHOWED REFLUX AND HE WAS SEEN BY VASCULAR SURGERY AND REPORTS THAT THEY DID NOT OFFER ABLATION. THE PATIENT RECENTLY HAD A FOLLOW UP APPOINTMENT WITH VASCULAR SURGERY AND WAS TOLD THAT THERE IS NOTHING THAT CAN BE DONE TO HELP THE VENOUS REFLUX. PREVIOUS WORKUP: 2/18/25: CULTURE GREW KLEBSIELLA OXYTOCA AND STAPHYLOCOCCUS AUREUS 10/18/23: MODERATE GROWTH STAPHYLOCOCCUS AUREUS 08/30/24: CULTURE GREW STAPHYLOCOCCUS AUREUS 06/23/24: VENOUS ULTRASOUND SHOWED VENOUS INSUFFICIENCY INVOLVING THE GREATER SAPHENOUS VEIN IN THE UPPER CALF, DOUBLE BOTTOM DRIVER REFLUX IN THE POSTERIOR CALF 06/14/24: CULTURE GREW LIGHT GROWTH MIXED SKIN AUNDREA 04/19/24: MRI REVEALED NO OSTEOMYELITIS IN THE ANKLE. EXTENSIVE VARICOSE VEIN WITH SKIN THICKENING, MOST PRONOUNCED IN THE MEDIAL ANKLE. 04/13/24: X-RAY RIGHT ANKLE REVEALED SOFT TISSUE SWELLING OVER MEDIAL MALLEOLUS WITH MERLYN HANNA [id number] 1950 UNDERLYING CORTICAL THINNING CONCERNING FOR EARLY OSTEOMYELITIS IN THIS AREA. 12/30/23: CULTURE GREW MIXED SKIN AUNDREA 12/08/2023: SCANT GROWTH-MIXED SKIN AUNDREA 06/30/23: CULTURES GREW ENTEROBACTER CLOACAE COMPLEX 05/31/23: CULTURES GREW ENTEROBACTER CLOACAE COMPLEX AND CORYNEBACTERIUM MINUTISSIMUM. 12/08/22: CULTURES GREW STAPHYLOCOCCUS SIMULANS 08/26/22 : CULTURES REVEALED CITROBACTER BRAAKII AND KLEBSIELLA OXYTOCA 08/26/22: ABIS WERE 1.01 ON THE LEFT AND 0.97 ON THE RIGHT MEDICAL HISTORY THIS INFORMATION WAS OBTAINED FROM THE PATIENT. PATIENT HAS A MEDICAL HISTORY OF: HYPOTHYROIDISM CORONARY ARTERY DISEASE (CAD) HYDROCELE VENOUS INSUFFICIENCY VENOUS STASIS ULCER IDIOPATHIC PERIPHERAL NEUROPATHY CHRONIC KNEE PAIN RIGHT INGUINAL HERNIA ADDITIONAL INFORMATION DOES PATIENT HAVE A HISTORY OF CANCER? YES? COMPLETE ALL QUESTIONS.: NO SURGICAL HISTORY THIS INFORMATION WAS OBTAINED FROM THE PATIENT. PATIENT HAS A SURGICAL HISTORY OF: APPENDECTOMY- 01/11/1960 KNEE REPLACEMENT- KIDNEY STONE REMOVAL- (MULTIPLE) STENT PLACEMENT - VENOUS ABLATION- R SFA- (2016) OBJECTIVE VITALS HEIGHT/LENGTH: 74 IN (187.96 CM), WEIGHT: 215.4 LBS (97.91 KGS), BMI: 27.7, TEMPERATURE: 98.1 ?F (36.72 ?C), PULSE: 88 BPM, RESPIRATORY RATE: 16 BREATHS/MIN, BLOOD PRESSURE: 122/74 MMHG, PULSE OXIMETRY: 98 %. PHYSICAL EXAM CONSTITUTIONAL: VITAL SIGNS REVIEWED AND NOTED. WELL DEVELOPED, WELL NOURISHED, AND IN NO ACUTE DISTRESS. ALERT AND ORIENTED X3. RESPIRATORY: EVEN RESPIRATIONS WITHOUT USE OF ACCESSORY MUSCLES. NO INTERCOASTAL RETRACTIONS NOTED. EVEN AND NON LABORED RESPIRATION. INTEGUMENTARY (HAIR, SKIN): ERYTHEMA PROXIMAL TO WRAP, HEMOSIDERIN. SWELLING PROXIMAL RIGHT LOWER EXTREMITY . SEE WOUND ASSESSMENT. SKIN WARM AND DRY. NEUROLOGICAL: MERLYN HANNA [id number] 1950 SENSATION: SYMMETRIC FUNCTION BY INFORMAL OBSERVATION. PSYCHIATRIC: ORIENTATION TO TIME, PLACE AND PERSON: NORMAL AFFECT WITH NORMAL THOUGHT PATTERN. ADDITIONAL INFORMATION THE PATIENT'S POTENTIAL TO HEAL IS: POOR. WOUND ASSESSMENT(S) WOUND #6 RIGHT, MEDIAL LEG IS A CHRONIC FULL THICKNESS VENOUS ULCER ACQUIRED ON 03/31/2023 AND HAS RECEIVED A STATUS OF NOT HEALED. INITIAL WOUND ENCOUNTER MEASUREMENTS ARE 2.7CM LENGTH X 3.4CM WIDTH X 0.2 CM DEPTH, WITH AN AREA OF 9.18 SQ CM AND A VOLUME OF 1.836 CUBIC CM.INITIAL WOUND ENCOUNTER PREVIOUS MEASUREMENTS FROM 12/16/2024 ARE 2.2CM LENGTH X 3.2CM WIDTH X 0.2CM DEPTH, WITH AN AREA OF 7.04 SQ CM AND A VOLUME OF 1.408 CUBIC CM. ADIPOSE IS EXPOSED. NO TUNNELING HAS BEEN NOTED. NO SINUS TRACT HAS BEEN NOTED. NO UNDERMINING HAS BEEN NOTED. THERE IS A MODERATE AMOUNT OF SEROSANGUINEOUS DRAINAGE NOTED WHICH HAS NO ODOR. THE PATIENT REPORTS A WOUND PAIN OF LEVEL 0/10. THE WOUND MARGIN IS ROLLED WOUND BED HAS YES, BRIGHT RED, PINK, SPONGY, GRANULATION, YES SLOUGH, NO ESCHAR, YES EPITHELIALIZATION. THE PERIWOUND SKIN EXHIBITED EDEMA, EXCORIATION, CALLUS, ATROPHIE SAMY, ERYTHEMA AND HEMOSIDEROSIS. THE PERIWOUND SKIN DID NOT EXHIBIT BRAWNY INDURATION, INDURATION, CREPITUS, FLUCTUANCE, RASH, MACERATION, CYANOSIS, ECCHYMOSIS, PALLOR AND RUBOR. THE PERIWOUND SKIN WAS MOIST. THE PERIWOUND SKIN WAS NOT FRIABLE AND DRY/SCALY. THE TEMPERATURE OF THE PERIWOUND SKIN IS WNL. PERIWOUND SKIN DOES NOT EXHIBIT SIGNS OR SYMPTOMS OF INFECTION. LOCAL PULSE IS DOPPLER. GENERAL NOTES ALL OPEN AREAS INCLUDED IN MEASUREMENTS. EPITHELIAL BRIDGE: 1.2CM. ADDITIONAL INFORMATION OTHER DEVITALIZED TISSUE PRESENT: BIOFILM JAEL/VASCULAR COMPLETED?: 06/03/24 RESULTS?: 1.14 ASSESSMENT ACTIVE PROBLEMS ICD-10 (ENCOUNTER DIAGNOSIS) L97.312 - NON-PRESSURE CHRONIC ULCER OF RIGHT ANKLE WITH FAT LAYER EXPOSED L97.212 - NON-PRESSURE CHRONIC ULCER OF RIGHT CALF WITH FAT LAYER EXPOSED (ENCOUNTER DIAGNOSIS) I87.2 - VENOUS INSUFFICIENCY (CHRONIC) (PERIPHERAL) L97.412 - NON-PRESSURE CHRONIC ULCER OF RIGHT HEEL AND MIDFOOT WITH FAT LAYER EXPOSED (ENCOUNTER DIAGNOSIS) L03.115 - CELLULITIS OF RIGHT LOWER LIMB GENERAL NOTES VENOUS ULCER RIGHT MEDIAL ANKLE SLIGHTLY LARGER CELLULITIS PROXIMAL RIGHT LOWER EXTREMITY THE FOLLOWING FACTORS HAVE BEEN IDENTIFIED THAT MAY AFFECT WOUND HEALING: DEVITALIZED TISSUE BIOBURDEN VENOUS INSUFFICIENCY NONCOMPLIANCE EDEMA INFECTION GOALS: REMOVE DEVITALIZED TISSUE REMOVE AND PREVENT BIOFILM MERLYN HANNA [id number] 1950 REDUCE SWELLING IMPROVE COMPLIANCE WOUND HEALING PREVENT RECURRENCE TREAT INFECTION PLAN: DEBRIDEMENT, CONTINUE DRESSING CHANGES WITH URGO CLEAN WITH MULTILAYER COMPRESSION WRAP TWICE A WEEK. START DOXYCYCLINE 100 MG P.O. B.I.D. X7 DAYS. ORDER CBC. BARRIER CREAM TO PERIWOUND SKIN WITH EACH DRESSING CHANGE. FOLLOW UP IN 1 WEEK FOR A RECHECK. PROCEDURES WOUND #6 WOUND #6 (VENOUS ULCER) IS LOCATED ON THE RIGHT, MEDIAL LEG. A SKIN/SUBCUTANEOUS TISSUE LEVEL SURGICAL DEBRIDEMENT WITH A TOTAL AREA DEBRIDED OF 9.18 SQ CM. WAS PERFORMED BY SHERMAN OLSON MD. SUBCUTANEOUS WAS REMOVED ALONG WITH DEVITALIZED TISSUE: BIOFILM, CALLUS, EXUDATE AND SLOUGH. THE FOLLOWING INSTRUMENT(S) WERE USED: CURETTE. PAIN CONTROL WAS ACHIEVED USING EMLA LIDOCAINE/PRILOCAINE 2.5%/2.5%. A TIME OUT WAS CONDUCTED PRIOR TO THE START OF THE PROCEDURE. A MINIMAL AMOUNT OF BLEEDING WAS CONTROLLED WITH PRESSURE. THE PROCEDURE WAS TOLERATED WELL WITH A PAIN LEVEL OF 0 THROUGHOUT AND A PAIN LEVEL OF 0 FOLLOWING THE PROCEDURE. POST DEBRIDEMENT MEASUREMENTS: 2.7CM LENGTH X 3.4CM WIDTH X 0.3CM DEPTH; WITH AN AREA OF 9.18 SQ CM AND A VOLUME OF 2.754 CUBIC CM. ADDITIONAL INFORMATION MUSCLE FASCIA OR BONE REMOVED AND SENT TO PATHOLOGY?: NO WOUND #6 (VENOUS ULCER) IS LOCATED ON THE RIGHT, MEDIAL LEG. A MULTILAYER COMPRESSION PROCEDURE WAS PERFORMED FOR THE LOWER RIGHT EXTREMITY BY QUIN LIZ RN. A 2 LAYER COBAN WRAP WAS APPLIED WITH HIGH (30-40 MMHG) COMPRESSION. THE PROCEDURE WAS TOLERATED WELL WITH A PAIN LEVEL OF 0 THROUGHOUT AND A PAIN LEVEL OF 0 FOLLOWING THE PROCEDURE. GENERAL NOTES 3M COBAN 2 LAYER COMPRESSION WRAP SYSTEM APPLIED PER WIRE TAPER'S RECOMMENDATIONS. PLAN WOUND ORDERS: WOUND #6 RIGHT, MEDIAL LEG HAND HYGIENE HAND HYGIENE - WASH HANDS BEFORE AND AFTER WOUND CARE. CALL THE WOUND CENTER AT [phone] IF YOU HAVE SIGNS OR SYMPTOMS OF INFECTION, FEVER CHILLS OR SHAKES, INCREASED DRAINAGE, INCREASED ODOR OR UNUSUAL REDNESS. AFTER WOUND CENTER HOURS PLEASE NOTIFY YOUR PCP OR GO TO THE EMERGENCY ROOM. CLEANSER CLEANSE WOUND WITH NORMAL SALINE APPLY HYPOCHLOROUS ACID (VASHE OR SIMILAR) SOAKED 4X4 GAUZE TO WOUND BED POST DEBRIDEMENT FOR 5-10 MINUTES. REMOVE GAUZE AND DRESS WOUND ACCORDING TO DRESSING ORDERS. MAY SHOWER, LEAVE WOUND DRESSING INTACT. COVER WOUND DRESSING WITH A WATERPROOF BARRIER. KEEP DRESSING DRY. NO BATHS PLEASE. - RECOMMEND USING CAST PROTECTOR. KEEP COBAN WRAP CLEAN AN DRY. PROCEDURE / ANESTHETIC 5% TOPICAL LIDOCAINE TO WOUND BED PRIOR TO PROCEDURE, IN CLINIC ONLY. TOPICAL TREATMENTS APPLY BARRIER OINTMENT/PASTE TO PROTECT SURROUNDING SKIN. DRESSING ORDERS APPLY DRESSING(S) AND SECURE WITH: - URGOCLEAN AG, MEXTRA, CONFORMING GAUZE WRAP. DRESSING CHANGE FREQUENCY LEAVE DRESSING INTACT UNTIL YOUR NEXT WOUND CENTER APPOINTMENT. KEEP DRY. HARIKAMERLYN PERAZA [id number] 1950 COMPRESSION/EDEMA CONTROL ELEVATE LEG(S) ABOVE THE LEVEL OF THE HEART MUCH POSSIBLE. AVOID STANDING IN ONE POSITION FOR MORE THAN 10 MINUTES. AVOID SITTING WITH LEGS DOWN. DO NOT CROSS LEGS WHEN SITTING. APPLY MULTI LAYER WRAP TO AFFECTED LEG(S) AT 30-40MMHG. - COBAN 2 LAYER COMPRESSION WRAP SYSTEM. ADDITIONAL ORDERS: DIETARY TAKE VITAMIN C 1000MG BY MOUTH DAILY. TAKE ZINC 25MG BY MOUTH DAILY. INCREASE THE PROTEIN IN YOUR DIET. OTHER NUTRITIONAL SUPPLEMENT: - STAN OR ENSURE MAX, AIM FOR 30 GRAMS ADDITIONAL PROTEIN BETWEEN MEALS. FOLLOW-UP APPOINTMENTS RETURN APPOINTMENT 1 WEEK - TUESDAYS FOR MD VISITS. RETURN FOR NURSE VISIT ON DATE NOTED BELOW FOR WOUND ASSESSMENT, MECHANICAL DEBRIDEMENT NECESSARY, AND COMPRESSION DRESSING CHANGE ORDERED DURING TODAY'S VISIT: COMPLETE FOR DIAGNOSIS OF: - VENOUS ULCER. FRIDAYS FOR NURSE VISITS. OTHER ORDERS: - PLEASE HOT MILL SHEARER AND START TAKING ANTIBIOTIC PRESCRIBED. SCRIBING ATTESTATION I ATTEST, THE NURSE, THAT I SCRIBED THESE ORDERS FOR THE WOUND CARE PROVIDER. PROVIDER REVIEW AND ATTESTATION: REVIEWED AND EVALUATED LABS. REVIEWED HOSPITAL RECORDS. DISCUSSED THE PLAN OF CARE @ BEDSIDE WITH - THE PATIENT PLACE PATIENT ON PALLIATIVE CARE DUE TO: - CHRONIC DISEASE I AGREE AND ATTEST TO THE ABOVE INFORMATION PROVIDED FROM OTHER LICENSED PROFESSIONALS. ANCILLARY SERVICES: LABORATORY: OTHER LABS - PLEASE HAVE LABS DRAWN PRIOR TO NEXT APPOINTMENT. MEDICATIONS PRESCRIBED: DOXYCYCLINE MONOHYDRATE - ORAL 100 MG 1 TABLET TWICE DAILY FOR 1 WEEK STARTING 12/20/2024 PLAN OF CARE: 01. ENSURE/ESTABLISH OPTIMAL BLOOD FLOW : - COMPLETE LOWER EXTREMITY ASSESSMENT STATUS: CONTINUED DATE: 12/14/2024 - PERFORM NON-INVASIVE VASCULAR TESTING (I.E. JAEL) AND DOCUMENT FINDINGS. CONSIDER REPEATING WHEN WOUND HEALING <40% AFTER 30 DAYS OF WOUND CARE. STATUS: COMPLETED DATE: 06/03/2023 02. ASSESS FOR/TREAT INFECTION : - EVALUATE FOR SIGNS AND SYMPTOMS OF INFECTION AND DOCUMENT FINDINGS. STATUS: CONTINUED DATE: 12/14/2024 03. DEBRIDE WEEKLY OR MORE OFTEN PRN : - EVALUATE PATIENT IN CENTER WEEKLY TO ASSESS WOUND BED AND MARGINS FOR NEED FOR DEBRIDEMENT. STATUS: CONTINUED DATE: 12/14/2024 - DEBRIDEMENT BY ANY METHOD TO REMOVE DEVITALIZED/NECROTIC TISSUE TO PROMOTE HEALING AND PREVENT FURTHER COMPLICATIONS. GOAL IS TO STIMULATE AND/OR MAINTAIN ACUTE PHASE OF WOUND HEALING BY REDUCING BACTERIAL BURDEN AND DEVITALIZED/NON-VIABLE TISSUE. STATUS: CONTINUED DATE: 12/14/2024 04. OPTIMIZE GLUCOSE CONTROL AND NUTRITION : - COMPLETE A NUTRITION RISK ASSESSMENT. STATUS: COMPLETED DATE: 08/16/2024 05. OFFLOADING PLAN : MERLYN HANNA [id number] 1950 - REVIEWED, NOT APPLICABLE 06. OPTIMIZE HOST FACTORS: - ASSESS AND REVIEW PATIENT HISTORY FOR WOUND ETIOLOGY, CO-MORBID CONDITIONS, MEDICATION REGIME, AND SMOKING HISTORY. STATUS: CONTINUED DATE: 12/14/2024 07. DRESSING SELECTION : - EVALUATE FOR DRESSING-RELATED FACTORS, SUCH AVAILABILITY, WEAR TIME, ADAPTABILITY AND USE TO BETTER OPTIMIZE WOUND HEALING AND PATIENT COMPLIANCE. STATUS: CONTINUED DATE: 12/14/2024 - CHOOSE TOPICAL TREATMENTS AND/OR DRESSING BASED ON WOUND TYPE AND APPEARANCE, PERIWOUND SKIN CONDITION, WOUND SIZE AND DEPTH, ANATOMIC LOCATION, VOLUME OF EXUDATE, EDEMA IN THE LOWER EXTREMITIES, AND RISK OR PRESENCE OF INFECTION. STATUS: CONTINUED DATE: 12/14/2024 08. ADVANCED MODALITIES : - SET TREATMENT GOALS ACCORDING TO PATIENT AND/OR CAREGIVER?S ABILITY/ COMPLIANCE. STATUS: CONTINUED DATE: 12/14/2024 - RE-EVALUATE PLAN OF CARE IF NO EVIDENCE OF HEALING (40% IN 4 WEEKS). STATUS: CONTINUED DATE: 12/14/2024 09. FALL PREVENTION : - REVIEWED, NOT APPLICABLE 10. PAIN MANAGEMENT : - COMPLETE PAIN ASSESSMENT STATUS: CONTINUED DATE: 12/14/2024 - PREPARE PATIENT TO SET REASONABLE EXPECTATIONS PRIOR TO PROCEDURE. STATUS: CONTINUED DATE: 12/14/2024 11. MEASURABLE GOALS FOR WOUND HEALING AND/OR HYPERBARIC OXYGEN THERAPY : - DECREASE WOUND DIMENSIONS STATUS: CONTINUED DATE: 12/14/2024 - IMPROVE QUALITY OF LIFE STATUS: CONTINUED DATE: 12/14/2024 - REDUCE EDEMA STATUS: CONTINUED DATE: 12/14/2024 12. DURATION/FREQUENCY OF WOUND CARE VISITS : - 2X WEEKLY FOR 30 DAYS STATUS: CONTINUED DATE: 12/14/2024 ELECTRONIC SIGNATURE(S) SIGNED BY: DATE: SHERMAN OLSON MD 12/21/2024 16:19:23 (PT) ENTERED BY: SHERMAN OLSON MD ON 12/20/2024 16:08:00 (PT) MERLYN HANNA [id number] 1950
== END ==
PROVIDERS: Visit Provider Surgery
DX: I87.2 Venous insufficiency (chronic) (peripheral) (principal); L97.812 Non-pressure chronic ulcer of other part of right lower leg with fat layer exposed; L97.312 Non-pressure chronic ulcer of right ankle with fat layer exposed; L03.115 Cellulitis of right lower limb; L53.8 Other specified erythematous conditions; L98.8 Other specified disorders of the skin and subcutaneous tissue; L84 Corns and callosities
CPT/HCPCS: 11042; 99213

== ENCOUNTER → 2024-12-20 15:37 | Outpatient (CLI) | payer MEDICARE, MEDICAID, SELFPAY ==
[2024-12-20 17:46] LABS: Add Manual Diff / Slide Review NO; Basophils Absolute Auto 100 /uL (0-100); Basophils Percent Auto 0.7 % (0-2); Eosinophils Absolute Auto 300 /uL (0-450); Eosinophils Percent Auto 4.2 % (2-4); Hematocrit 44.9 % (41-53); Lymphocytes Absolute Auto 1400 /uL (1100-4500); Lymphocytes Percent Auto 19.5 % (25-40); Mean Corpuscular HGB Conc 33.3 % (30-36); Mean Corpuscular Hemoglobin 30.3 PG (26-34); Mean Corpuscular Volume 90.9 fL (80-100); Monocytes Absolute Auto 800 /uL (0-900); Monocytes Percent Auto 10.5 % (3-14); Neutrophils Absolute Auto 4700 /uL (1500-7000); Neutrophils Percent Auto 65.1 % (50-75); Platelet Count 205 X10^3/uL (150-400); Red Blood Cell Count 4.94 X10^6/uL (4.5-5.9); Red Cell Distribution Width 13.1 % (11.6-14.8); White Blood Cell Count 7.2 X10^3/uL (4.5-11.0)
== END ==
PROVIDERS: Referring Provider Surgery; Visit Provider Surgery
DX: L97.412 Non-pressure chronic ulcer of right heel and midfoot with fat layer exposed (principal)
CPT/HCPCS: 36415; 85025

== ENCOUNTER → 2024-12-23 14:09 | Outpatient (CLI) | payer MEDICARE, MEDICAID, SELFPAY | PROVIDERS: Visit Provider Physician Assistant | DX: I87.2 Venous insufficiency (chronic) (peripheral) (principal); L97.812 Non-pressure chronic ulcer of other part of right lower leg with fat layer exposed; L53.8 Other specified erythematous conditions; L98.8 Other specified disorders of the skin and subcutaneous tissue; L84 Corns and callosities | CPT/HCPCS: 29581 ==

== ENCOUNTER → 2024-12-26 16:40 | Outpatient (CLI) | payer MEDICARE, MEDICAID, SELFPAY ==
[2024-12-26 18:18] LABS: Free T3, Triiodothyronine Free 3.13 pg/mL (2.77-5.27); Free T4, Direct Thyroxine 0.95 ng/dL (0.78-2.19)
[2024-12-26 18:32] LABS: Thyroid Stimulating Hormone 4.68 uIU/mL (0.47-4.68)
== END ==
LOC: LAB 16:42
PROVIDERS: Referring Provider Surgery; Visit Provider Surgery
DX: E03.9 Hypothyroidism, unspecified (principal)
CPT/HCPCS: 36415; 84439; 84443; 84481

== ENCOUNTER → 2024-12-27 14:11 | Outpatient (CLI) | payer MEDICARE, MEDICAID, SELFPAY | PROVIDERS: Visit Provider Surgery | DX: I87.2 Venous insufficiency (chronic) (peripheral) (principal); L97.312 Non-pressure chronic ulcer of right ankle with fat layer exposed; L03.115 Cellulitis of right lower limb; L84 Corns and callosities; R60.0 Localized edema; G60.9 Hereditary and idiopathic neuropathy, unspecified; L53.8 Other specified erythematous conditions | CPT/HCPCS: 11042 ==

== ENCOUNTER → 2024-12-30 13:39 | Outpatient (CLI) | payer MEDICARE, MEDICAID, SELFPAY | PROVIDERS: Referring Provider Nurse Practitioner Family; Visit Provider Physician Assistant | DX: I87.2 Venous insufficiency (chronic) (peripheral) (principal); L97.812 Non-pressure chronic ulcer of other part of right lower leg with fat layer exposed | CPT/HCPCS: 29581 ==

== ENCOUNTER → 2025-01-03 16:14 | Outpatient (CLI) | payer MEDICARE, MEDICAID, SELFPAY | PROVIDERS: Visit Provider Surgery | DX: I87.2 Venous insufficiency (chronic) (peripheral) (principal); L97.812 Non-pressure chronic ulcer of other part of right lower leg with fat layer exposed; L84 Corns and callosities; G60.0 Hereditary motor and sensory neuropathy | CPT/HCPCS: 11042 ==

== ENCOUNTER → 2025-01-06 14:33 | Outpatient (CLI) | payer MEDICARE, MEDICAID, SELFPAY | PROVIDERS: Visit Provider Physician Assistant | DX: I87.2 Venous insufficiency (chronic) (peripheral) (principal); L97.812 Non-pressure chronic ulcer of other part of right lower leg with fat layer exposed; L53.8 Other specified erythematous conditions; L98.8 Other specified disorders of the skin and subcutaneous tissue; L84 Corns and callosities | CPT/HCPCS: 29580 ==

== ENCOUNTER → 2025-01-10 13:23 | Outpatient (CLI) | payer MEDICARE, MEDICAID, SELFPAY | LOC: WC 13:25 | PROVIDERS: Visit Provider Surgery | DX: I87.2 Venous insufficiency (chronic) (peripheral) (principal); L97.812 Non-pressure chronic ulcer of other part of right lower leg with fat layer exposed; L97.312 Non-pressure chronic ulcer of right ankle with fat layer exposed; R60.0 Localized edema; L98.8 Other specified disorders of the skin and subcutaneous tissue; L84 Corns and callosities; L53.8 Other specified erythematous conditions | CPT/HCPCS: 11042; 99213 ==

== ENCOUNTER → 2025-01-13 14:06 | Outpatient (CLI) | payer MEDICARE, MEDICAID, SELFPAY | LOC: WC 14:07 | PROVIDERS: Visit Provider Physician Assistant | DX: L97.812 Non-pressure chronic ulcer of other part of right lower leg with fat layer exposed (principal); I87.2 Venous insufficiency (chronic) (peripheral); L53.9 Erythematous condition, unspecified; R60.0 Localized edema; L84 Corns and callosities | CPT/HCPCS: 29580 ==

== ENCOUNTER → 2025-01-17 14:19 | Outpatient (CLI) | payer MEDICARE, MEDICAID, SELFPAY | PROVIDERS: Visit Provider Physician Assistant | DX: I87.2 Venous insufficiency (chronic) (peripheral) (principal); L97.812 Non-pressure chronic ulcer of other part of right lower leg with fat layer exposed; L98.8 Other specified disorders of the skin and subcutaneous tissue; L53.8 Other specified erythematous conditions; L84 Corns and callosities | CPT/HCPCS: 29580 ==

== ENCOUNTER → 2025-01-20 13:42 | Outpatient (CLI) | payer MEDICARE, MEDICAID, SELFPAY | PROVIDERS: Visit Provider Physician Assistant | DX: I87.2 Venous insufficiency (chronic) (peripheral) (principal); L97.812 Non-pressure chronic ulcer of other part of right lower leg with fat layer exposed; L53.8 Other specified erythematous conditions; L98.8 Other specified disorders of the skin and subcutaneous tissue | CPT/HCPCS: 29580 ==

== ENCOUNTER → 2025-01-24 13:55 | Outpatient (CLI) | payer MEDICARE, MEDICAID, SELFPAY | PROVIDERS: Visit Provider Surgery | DX: I87.2 Venous insufficiency (chronic) (peripheral) (principal); L97.312 Non-pressure chronic ulcer of right ankle with fat layer exposed; L03.115 Cellulitis of right lower limb | CPT/HCPCS: 11042 ==

== ENCOUNTER → 2025-01-27 13:52 | Outpatient (CLI) | payer MEDICARE, MEDICAID, SELFPAY | PROVIDERS: Visit Provider Physician Assistant | DX: I87.2 Venous insufficiency (chronic) (peripheral) (principal); L97.812 Non-pressure chronic ulcer of other part of right lower leg with fat layer exposed; R60.0 Localized edema; L53.8 Other specified erythematous conditions; L98.8 Other specified disorders of the skin and subcutaneous tissue | CPT/HCPCS: 29580 ==

== ENCOUNTER → 2025-01-31 14:21 | Outpatient (CLI) | payer MEDICARE, MEDICAID, SELFPAY | PROVIDERS: Visit Provider Surgery | DX: I87.2 Venous insufficiency (chronic) (peripheral) (principal); L97.312 Non-pressure chronic ulcer of right ankle with fat layer exposed; L03.115 Cellulitis of right lower limb; L98.8 Other specified disorders of the skin and subcutaneous tissue; G60.9 Hereditary and idiopathic neuropathy, unspecified | CPT/HCPCS: 11042 ==

== ENCOUNTER → 2025-02-03 12:13 | Outpatient (CLI) | payer MEDICARE, MEDICAID, SELFPAY | PROVIDERS: Visit Provider Nurse Practitioner Family | DX: I87.2 Venous insufficiency (chronic) (peripheral) (principal); L97.812 Non-pressure chronic ulcer of other part of right lower leg with fat layer exposed; L98.8 Other specified disorders of the skin and subcutaneous tissue; R60.0 Localized edema | CPT/HCPCS: 29581 ==

== ENCOUNTER → 2025-02-07 13:30 | Outpatient (CLI) | payer MEDICARE, MEDICAID, SELFPAY | PROVIDERS: Visit Provider Surgery | DX: I87.2 Venous insufficiency (chronic) (peripheral) (principal); L97.312 Non-pressure chronic ulcer of right ankle with fat layer exposed; L03.115 Cellulitis of right lower limb; L98.8 Other specified disorders of the skin and subcutaneous tissue; R60.0 Localized edema; G60.9 Hereditary and idiopathic neuropathy, unspecified | CPT/HCPCS: 11042 ==

== ENCOUNTER → 2025-02-10 13:27 | Outpatient (CLI) | payer MEDICARE, MEDICAID, SELFPAY | LOC: WC 13:28 | PROVIDERS: Visit Provider Physician Assistant | DX: L97.812 Non-pressure chronic ulcer of other part of right lower leg with fat layer exposed (principal); I87.2 Venous insufficiency (chronic) (peripheral); R60.0 Localized edema | CPT/HCPCS: 29581 ==

== ENCOUNTER → 2025-02-14 15:21 | Outpatient (CLI) | payer MEDICARE, MEDICAID, SELFPAY | LOC: WC 15:22 | PROVIDERS: Visit Provider Surgery | DX: I87.2 Venous insufficiency (chronic) (peripheral) (principal); L97.812 Non-pressure chronic ulcer of other part of right lower leg with fat layer exposed; L98.8 Other specified disorders of the skin and subcutaneous tissue; G62.9 Polyneuropathy, unspecified; R60.0 Localized edema | CPT/HCPCS: 11042; 99213 ==

== ENCOUNTER → 2025-02-17 13:42 | Outpatient (CLI) | payer MEDICARE, MEDICAID, SELFPAY | LOC: WC 13:44 | PROVIDERS: Visit Provider Physician Assistant | DX: L97.812 Non-pressure chronic ulcer of other part of right lower leg with fat layer exposed (principal); I87.2 Venous insufficiency (chronic) (peripheral); R60.0 Localized edema; L53.9 Erythematous condition, unspecified; R21 Rash and other nonspecific skin eruption | CPT/HCPCS: 29581 ==

== ENCOUNTER → 2025-02-21 13:30 | Outpatient (CLI) | payer MEDICARE, MEDICAID, SELFPAY | LOC: WC 13:33 | PROVIDERS: Visit Provider Surgery | DX: I87.2 Venous insufficiency (chronic) (peripheral) (principal); L97.812 Non-pressure chronic ulcer of other part of right lower leg with fat layer exposed; S91.105A Unspecified open wound of left lesser toe(s) without damage to nail, initial encounter; R60.0 Localized edema | CPT/HCPCS: 11042; 87070; 87075; 87077; 87186; 87205 ==

== ENCOUNTER → 2025-02-24 13:42 | Outpatient (CLI) | payer MEDICARE, MEDICAID, SELFPAY | PROVIDERS: Visit Provider Physician Assistant | DX: I87.2 Venous insufficiency (chronic) (peripheral) (principal); L97.812 Non-pressure chronic ulcer of other part of right lower leg with fat layer exposed; S91.115A Laceration without foreign body of left lesser toe(s) without damage to nail, initial encounter; L53.9 Erythematous condition, unspecified | CPT/HCPCS: 29581 ==

== ENCOUNTER → 2025-02-28 14:50 | Outpatient (CLI) | payer MEDICARE, MEDICAID, SELFPAY | PROVIDERS: Visit Provider Surgery | DX: I87.2 Venous insufficiency (chronic) (peripheral) (principal); L97.812 Non-pressure chronic ulcer of other part of right lower leg with fat layer exposed; S91.115A Laceration without foreign body of left lesser toe(s) without damage to nail, initial encounter; R21 Rash and other nonspecific skin eruption; G60.9 Hereditary and idiopathic neuropathy, unspecified | CPT/HCPCS: 11042 ==

== ENCOUNTER → 2025-03-03 13:41 | Outpatient (CLI) | payer MEDICARE, MEDICAID, SELFPAY | PROVIDERS: Visit Provider Physician Assistant | DX: I87.2 Venous insufficiency (chronic) (peripheral) (principal); L97.812 Non-pressure chronic ulcer of other part of right lower leg with fat layer exposed; R60.0 Localized edema; L53.9 Erythematous condition, unspecified | CPT/HCPCS: 29581 ==

== ENCOUNTER → 2025-03-07 16:24 | Outpatient (CLI) | payer MEDICARE, MEDICAID, SELFPAY | PROVIDERS: Visit Provider Surgery | DX: I87.2 Venous insufficiency (chronic) (peripheral) (principal); L97.812 Non-pressure chronic ulcer of other part of right lower leg with fat layer exposed; S91.112A Laceration without foreign body of left great toe without damage to nail, initial encounter; R60.0 Localized edema; G60.9 Hereditary and idiopathic neuropathy, unspecified | CPT/HCPCS: 11042 ==

== ENCOUNTER → 2025-03-10 10:24 | Outpatient (CLI) | payer MEDICARE, MEDICAID, SELFPAY | PROVIDERS: Visit Provider Surgery | DX: L97.812 Non-pressure chronic ulcer of other part of right lower leg with fat layer exposed (principal); I87.2 Venous insufficiency (chronic) (peripheral); S90.415A Abrasion, left lesser toe(s), initial encounter; R60.0 Localized edema; L53.9 Erythematous condition, unspecified | CPT/HCPCS: 29581 ==

== ENCOUNTER → 2025-03-14 13:18 | Outpatient (CLI) | payer MEDICARE, MEDICAID, SELFPAY | LOC: WC 13:20 | PROVIDERS: Visit Provider Surgery | DX: I87.2 Venous insufficiency (chronic) (peripheral) (principal); L97.812 Non-pressure chronic ulcer of other part of right lower leg with fat layer exposed; S91.115A Laceration without foreign body of left lesser toe(s) without damage to nail, initial encounter; L53.9 Erythematous condition, unspecified; R60.0 Localized edema | CPT/HCPCS: 11042; 99213 ==

== ENCOUNTER → 2025-03-17 13:45 | Outpatient (CLI) | payer MEDICARE, MEDICAID, SELFPAY | LOC: WC 13:56 | PROVIDERS: Visit Provider Physician Assistant | DX: I87.2 Venous insufficiency (chronic) (peripheral) (principal); L97.812 Non-pressure chronic ulcer of other part of right lower leg with fat layer exposed; S91.115A Laceration without foreign body of left lesser toe(s) without damage to nail, initial encounter; R60.0 Localized edema | CPT/HCPCS: 29581 ==

== ENCOUNTER → 2025-03-21 14:52 | Outpatient (CLI) | payer MEDICARE, MEDICAID, SELFPAY | LOC: WC 14:53 | PROVIDERS: Visit Provider Surgery | DX: I87.2 Venous insufficiency (chronic) (peripheral) (principal); L97.812 Non-pressure chronic ulcer of other part of right lower leg with fat layer exposed; S91.105D Unspecified open wound of left lesser toe(s) without damage to nail, subsequent encounter; G60.3 Idiopathic progressive neuropathy; R60.0 Localized edema | CPT/HCPCS: 11042 ==

== ENCOUNTER → 2025-03-24 16:13 | Outpatient (CLI) | payer MEDICARE, MEDICAID, SELFPAY | LOC: WC 16:15 | PROVIDERS: Visit Provider Physician Assistant | DX: I87.2 Venous insufficiency (chronic) (peripheral) (principal); L97.812 Non-pressure chronic ulcer of other part of right lower leg with fat layer exposed; R60.0 Localized edema; L53.9 Erythematous condition, unspecified | CPT/HCPCS: 29581 ==

== ENCOUNTER → 2025-03-28 10:04 | Outpatient (CLI) | payer MEDICARE, MEDICAID, SELFPAY | LOC: WC 10:05 | PROVIDERS: Visit Provider Surgery | DX: I87.2 Venous insufficiency (chronic) (peripheral) (principal); L97.812 Non-pressure chronic ulcer of other part of right lower leg with fat layer exposed; R60.0 Localized edema; L53.9 Erythematous condition, unspecified | CPT/HCPCS: 11042 ==

== ENCOUNTER → 2025-03-31 13:52 | Outpatient (CLI) | payer MEDICARE, MEDICAID, SELFPAY | LOC: WC 13:53 | PROVIDERS: Visit Provider Physician Assistant | DX: L97.812 Non-pressure chronic ulcer of other part of right lower leg with fat layer exposed (principal); I87.2 Venous insufficiency (chronic) (peripheral); R60.0 Localized edema; L53.9 Erythematous condition, unspecified | CPT/HCPCS: 29581 ==

== ENCOUNTER → 2025-04-04 14:08 | Outpatient (CLI) | payer MEDICARE, MEDICAID, SELFPAY | PROVIDERS: Visit Provider Surgery | DX: I87.2 Venous insufficiency (chronic) (peripheral) (principal); L97.812 Non-pressure chronic ulcer of other part of right lower leg with fat layer exposed; R21 Rash and other nonspecific skin eruption | CPT/HCPCS: 11042 ==

== ENCOUNTER → 2025-04-07 14:13 | Outpatient (CLI) | payer MEDICARE, MEDICAID, SELFPAY | LOC: WC 14:14 | PROVIDERS: Visit Provider Surgery | DX: L97.812 Non-pressure chronic ulcer of other part of right lower leg with fat layer exposed (principal); I87.2 Venous insufficiency (chronic) (peripheral); R60.0 Localized edema; R21 Rash and other nonspecific skin eruption | CPT/HCPCS: 29581 ==

== ENCOUNTER → 2025-04-11 13:38 | Outpatient (CLI) | payer MEDICARE, MEDICAID, SELFPAY | LOC: WC 13:39 | PROVIDERS: Visit Provider Surgery | DX: I87.2 Venous insufficiency (chronic) (peripheral) (principal); L97.812 Non-pressure chronic ulcer of other part of right lower leg with fat layer exposed; L97.322 Non-pressure chronic ulcer of left ankle with fat layer exposed; R60.0 Localized edema | CPT/HCPCS: 11042; 99213 ==

== ENCOUNTER → 2025-04-13 15:29 | Outpatient (CLI) | payer MEDICARE, MEDICAID, SELFPAY | LOC: WC 15:35 | PROVIDERS: Visit Provider Surgery | DX: I87.2 Venous insufficiency (chronic) (peripheral) (principal); L97.812 Non-pressure chronic ulcer of other part of right lower leg with fat layer exposed; R60.0 Localized edema; L97.322 Non-pressure chronic ulcer of left ankle with fat layer exposed | CPT/HCPCS: 99212 ==

== ENCOUNTER → 2025-04-18 14:41 | Outpatient (CLI) | payer MEDICARE, MEDICAID, SELFPAY | PROVIDERS: Visit Provider Surgery | DX: I87.2 Venous insufficiency (chronic) (peripheral) (principal); L97.812 Non-pressure chronic ulcer of other part of right lower leg with fat layer exposed; L97.322 Non-pressure chronic ulcer of left ankle with fat layer exposed; R60.0 Localized edema | CPT/HCPCS: 11042; 87070; 87075; 87077; 87147; 87186; 87205 ==

== ENCOUNTER → 2025-04-21 10:49 | Outpatient (CLI) | payer MEDICARE, MEDICAID, SELFPAY | PROVIDERS: Visit Provider Nurse Practitioner Family | DX: I87.2 Venous insufficiency (chronic) (peripheral) (principal); L97.812 Non-pressure chronic ulcer of other part of right lower leg with fat layer exposed; L97.322 Non-pressure chronic ulcer of left ankle with fat layer exposed; R60.0 Localized edema | CPT/HCPCS: 29581 ==

== ENCOUNTER → 2025-04-25 14:48 | Outpatient (CLI) | payer MEDICARE, MEDICAID, SELFPAY | LOC: WC 14:49 | PROVIDERS: Visit Provider Surgery | DX: I87.2 Venous insufficiency (chronic) (peripheral) (principal); L97.812 Non-pressure chronic ulcer of other part of right lower leg with fat layer exposed; L97.322 Non-pressure chronic ulcer of left ankle with fat layer exposed; R60.0 Localized edema; G62.9 Polyneuropathy, unspecified; R21 Rash and other nonspecific skin eruption | CPT/HCPCS: 11042 ==

== ENCOUNTER → 2025-04-28 14:34 | Outpatient (CLI) | payer MEDICARE, MEDICAID, SELFPAY | LOC: WC 14:37 | PROVIDERS: Visit Provider Physician Assistant | DX: I87.2 Venous insufficiency (chronic) (peripheral) (principal); L97.812 Non-pressure chronic ulcer of other part of right lower leg with fat layer exposed; L97.322 Non-pressure chronic ulcer of left ankle with fat layer exposed | CPT/HCPCS: 29581 ==

== ENCOUNTER → 2025-05-02 12:08 | Outpatient (CLI) | payer MEDICARE, MEDICAID, SELFPAY | LOC: WC 12:09 | PROVIDERS: Visit Provider Surgery | DX: L97.322 Non-pressure chronic ulcer of left ankle with fat layer exposed (principal); L97.312 Non-pressure chronic ulcer of right ankle with fat layer exposed; I87.2 Venous insufficiency (chronic) (peripheral); R60.0 Localized edema; G62.9 Polyneuropathy, unspecified; T38.1X6A Underdosing of thyroid hormones and substitutes, initial encounter; Z91.128 Patient's intentional underdosing of medication regimen for other reason | CPT/HCPCS: 11042 ==

== ENCOUNTER → 2025-05-05 14:48 | Outpatient (CLI) | payer MEDICARE, MEDICAID, SELFPAY | LOC: WC 14:49 | PROVIDERS: Visit Provider Physician Assistant | DX: I87.2 Venous insufficiency (chronic) (peripheral) (principal); L97.812 Non-pressure chronic ulcer of other part of right lower leg with fat layer exposed; L97.322 Non-pressure chronic ulcer of left ankle with fat layer exposed; R21 Rash and other nonspecific skin eruption; R60.0 Localized edema | CPT/HCPCS: 29581 ==

== ENCOUNTER → 2025-05-09 13:27 | Outpatient (CLI) | payer MEDICARE, MEDICAID, SELFPAY | LOC: WC 13:29 | PROVIDERS: Visit Provider Surgery | DX: I87.2 Venous insufficiency (chronic) (peripheral) (principal); L97.312 Non-pressure chronic ulcer of right ankle with fat layer exposed; L97.322 Non-pressure chronic ulcer of left ankle with fat layer exposed; R60.0 Localized edema; G62.9 Polyneuropathy, unspecified; I25.10 Atherosclerotic heart disease of native coronary artery without angina pectoris; E03.9 Hypothyroidism, unspecified; Z91.128 Patient's intentional underdosing of medication regimen for other reason | CPT/HCPCS: 11042; 99213 ==

== ENCOUNTER → 2025-06-06 14:05 | Outpatient (CLI) | payer MEDICARE, MEDICAID, SELFPAY | LOC: WC 14:07 | PROVIDERS: Visit Provider Surgery | DX: I87.2 Venous insufficiency (chronic) (peripheral) (principal); L97.312 Non-pressure chronic ulcer of right ankle with fat layer exposed; L97.322 Non-pressure chronic ulcer of left ankle with fat layer exposed; S91.114A Laceration without foreign body of right lesser toe(s) without damage to nail, initial encounter; L08.9 Local infection of the skin and subcutaneous tissue, unspecified; R60.0 Localized edema; L81.8 Other specified disorders of pigmentation; L90.8 Other atrophic disorders of skin; L98.8 Other specified disorders of the skin and subcutaneous tissue; G60.9 Hereditary and idiopathic neuropathy, unspecified; E03.9 Hypothyroidism, unspecified; Z91.128 Patient's intentional underdosing of medication regimen for other reason; R53.83 Other fatigue; I25.10 Atherosclerotic heart disease of native coronary artery without angina pectoris | CPT/HCPCS: 11042; 99213 ==

== ENCOUNTER → 2025-06-13 13:30 | Outpatient (CLI) | payer MEDICARE, MEDICAID, SELFPAY | PROVIDERS: Visit Provider Surgery | DX: I87.2 Venous insufficiency (chronic) (peripheral) (principal); L97.312 Non-pressure chronic ulcer of right ankle with fat layer exposed; L97.322 Non-pressure chronic ulcer of left ankle with fat layer exposed; L81.8 Other specified disorders of pigmentation; L98.8 Other specified disorders of the skin and subcutaneous tissue; S91.104D Unspecified open wound of right lesser toe(s) without damage to nail, subsequent encounter; G60.9 Hereditary and idiopathic neuropathy, unspecified; I25.10 Atherosclerotic heart disease of native coronary artery without angina pectoris; Z91.199 Patient's noncompliance with other medical treatment and regimen due to unspecified reason | CPT/HCPCS: 11042 ==

== ENCOUNTER → 2025-06-20 14:50 | Outpatient (CLI) | payer MEDICARE, MEDICAID, SELFPAY | LOC: WC 14:50 | PROVIDERS: Visit Provider Surgery | DX: I87.2 Venous insufficiency (chronic) (peripheral) (principal); L97.312 Non-pressure chronic ulcer of right ankle with fat layer exposed; L97.322 Non-pressure chronic ulcer of left ankle with fat layer exposed; L98.8 Other specified disorders of the skin and subcutaneous tissue; L81.8 Other specified disorders of pigmentation; G60.9 Hereditary and idiopathic neuropathy, unspecified; I25.10 Atherosclerotic heart disease of native coronary artery without angina pectoris; Z91.199 Patient's noncompliance with other medical treatment and regimen due to unspecified reason; L30.9 Dermatitis, unspecified | CPT/HCPCS: 11042 ==

== ENCOUNTER → 2025-06-23 11:18 | Outpatient (CLI) | payer MEDICARE, MEDICAID, SELFPAY | LOC: WC 11:20 | PROVIDERS: Visit Provider Physician Assistant | DX: I87.2 Venous insufficiency (chronic) (peripheral) (principal); L97.812 Non-pressure chronic ulcer of other part of right lower leg with fat layer exposed; L97.322 Non-pressure chronic ulcer of left ankle with fat layer exposed; L98.8 Other specified disorders of the skin and subcutaneous tissue; L81.8 Other specified disorders of pigmentation; L90.8 Other atrophic disorders of skin | CPT/HCPCS: 29581 ==

== ENCOUNTER → 2025-06-27 13:31 | Outpatient (CLI) | payer MEDICARE, MEDICAID, SELFPAY | LOC: WC 13:32 | PROVIDERS: Visit Provider Surgery | DX: I87.2 Venous insufficiency (chronic) (peripheral) (principal); L97.312 Non-pressure chronic ulcer of right ankle with fat layer exposed; L97.322 Non-pressure chronic ulcer of left ankle with fat layer exposed; L98.8 Other specified disorders of the skin and subcutaneous tissue; R60.0 Localized edema | CPT/HCPCS: 11042 ==

== ENCOUNTER → 2025-06-30 13:54 | Outpatient (CLI) | payer MEDICARE, MEDICAID, SELFPAY | LOC: WC 13:56 | PROVIDERS: Visit Provider Physician Assistant | DX: I87.2 Venous insufficiency (chronic) (peripheral) (principal); L97.812 Non-pressure chronic ulcer of other part of right lower leg with fat layer exposed; L97.322 Non-pressure chronic ulcer of left ankle with fat layer exposed; L98.8 Other specified disorders of the skin and subcutaneous tissue; L81.8 Other specified disorders of pigmentation | CPT/HCPCS: 29581 ==

== ENCOUNTER → 2025-07-04 15:53 | Outpatient (CLI) | payer MEDICARE, MEDICAID, SELFPAY | LOC: WC 16:09 | PROVIDERS: Visit Provider Surgery | DX: I87.2 Venous insufficiency (chronic) (peripheral) (principal); L97.812 Non-pressure chronic ulcer of other part of right lower leg with fat layer exposed; L97.322 Non-pressure chronic ulcer of left ankle with fat layer exposed; L98.8 Other specified disorders of the skin and subcutaneous tissue; R60.0 Localized edema; G60.8 Other hereditary and idiopathic neuropathies | CPT/HCPCS: 11042; 99213 ==

== ENCOUNTER → 2025-07-07 14:24 | Outpatient (CLI) | payer MEDICARE, MEDICAID, SELFPAY | LOC: WC 14:27 | PROVIDERS: Visit Provider Physician Assistant | DX: I87.2 Venous insufficiency (chronic) (peripheral) (principal); L97.812 Non-pressure chronic ulcer of other part of right lower leg with fat layer exposed; L97.322 Non-pressure chronic ulcer of left ankle with fat layer exposed; L98.8 Other specified disorders of the skin and subcutaneous tissue; R60.0 Localized edema; R21 Rash and other nonspecific skin eruption | CPT/HCPCS: 29581 ==

== ENCOUNTER → 2025-07-11 13:44 | Outpatient (CLI) | payer MEDICARE, MEDICAID, SELFPAY | LOC: WC 13:47 | PROVIDERS: Visit Provider Surgery | DX: I87.2 Venous insufficiency (chronic) (peripheral) (principal); L97.322 Non-pressure chronic ulcer of left ankle with fat layer exposed; L97.812 Non-pressure chronic ulcer of other part of right lower leg with fat layer exposed; L81.8 Other specified disorders of pigmentation; R21 Rash and other nonspecific skin eruption; L98.8 Other specified disorders of the skin and subcutaneous tissue; L90.8 Other atrophic disorders of skin; G60.9 Hereditary and idiopathic neuropathy, unspecified; I25.10 Atherosclerotic heart disease of native coronary artery without angina pectoris; Z91.148 Patient's other noncompliance with medication regimen for other reason; R53.83 Other fatigue | CPT/HCPCS: 11042 ==

== ENCOUNTER → 2025-07-14 13:38 | Outpatient (CLI) | payer MEDICARE, MEDICAID, SELFPAY | LOC: WC 14:00 | PROVIDERS: Visit Provider Physician Assistant | DX: I87.2 Venous insufficiency (chronic) (peripheral) (principal); L97.812 Non-pressure chronic ulcer of other part of right lower leg with fat layer exposed; L97.322 Non-pressure chronic ulcer of left ankle with fat layer exposed; L98.8 Other specified disorders of the skin and subcutaneous tissue; R60.0 Localized edema; R21 Rash and other nonspecific skin eruption | CPT/HCPCS: 29581 ==

== ENCOUNTER → 2025-07-18 15:52 | Outpatient (CLI) | payer MEDICARE, MEDICAID, SELFPAY | LOC: WC 15:55 | PROVIDERS: Referring Provider Nurse Practitioner Family; Visit Provider Surgery | DX: I87.2 Venous insufficiency (chronic) (peripheral) (principal); L97.322 Non-pressure chronic ulcer of left ankle with fat layer exposed; L97.812 Non-pressure chronic ulcer of other part of right lower leg with fat layer exposed; L81.8 Other specified disorders of pigmentation; R21 Rash and other nonspecific skin eruption; L98.8 Other specified disorders of the skin and subcutaneous tissue; L90.8 Other atrophic disorders of skin; G62.9 Polyneuropathy, unspecified; I25.10 Atherosclerotic heart disease of native coronary artery without angina pectoris; R53.82 Chronic fatigue, unspecified; Z91.128 Patient's intentional underdosing of medication regimen for other reason | CPT/HCPCS: 11042 ==

== ENCOUNTER → 2025-07-21 16:10 | Outpatient (CLI) | payer MEDICARE, MEDICAID, SELFPAY | LOC: WC 16:13 | PROVIDERS: Referring Provider Nurse Practitioner Family; Visit Provider Physician Assistant | DX: I87.2 Venous insufficiency (chronic) (peripheral) (principal); L97.812 Non-pressure chronic ulcer of other part of right lower leg with fat layer exposed; L97.322 Non-pressure chronic ulcer of left ankle with fat layer exposed; L53.8 Other specified erythematous conditions; L98.8 Other specified disorders of the skin and subcutaneous tissue; R60.0 Localized edema | CPT/HCPCS: 29581 ==

== ENCOUNTER → 2025-07-25 12:59 | Outpatient (CLI) | payer MEDICARE, MEDICAID, SELFPAY | LOC: WC 13:02 | PROVIDERS: Visit Provider Surgery | DX: L97.312 Non-pressure chronic ulcer of right ankle with fat layer exposed (principal); L97.322 Non-pressure chronic ulcer of left ankle with fat layer exposed; I87.2 Venous insufficiency (chronic) (peripheral); R60.0 Localized edema; L53.9 Erythematous condition, unspecified; Z91.199 Patient's noncompliance with other medical treatment and regimen due to unspecified reason | CPT/HCPCS: 11042 ==

== ENCOUNTER → 2025-07-28 14:25 | Outpatient (CLI) | payer MEDICARE, MEDICAID, SELFPAY | LOC: WC 14:27 | PROVIDERS: Referring Provider Internal Medicine; Visit Provider Physician Assistant | DX: L97.812 Non-pressure chronic ulcer of other part of right lower leg with fat layer exposed (principal); L97.322 Non-pressure chronic ulcer of left ankle with fat layer exposed; I87.2 Venous insufficiency (chronic) (peripheral); R60.0 Localized edema; L53.9 Erythematous condition, unspecified | CPT/HCPCS: 29581 ==

== ENCOUNTER → 2025-08-01 13:50 | Outpatient (CLI) | payer MEDICARE, MEDICAID, SELFPAY | LOC: WC 14:28 | PROVIDERS: Referring Provider Internal Medicine; Visit Provider Surgery | DX: I87.2 Venous insufficiency (chronic) (peripheral) (principal); L97.312 Non-pressure chronic ulcer of right ankle with fat layer exposed; L53.8 Other specified erythematous conditions; L97.322 Non-pressure chronic ulcer of left ankle with fat layer exposed; L98.8 Other specified disorders of the skin and subcutaneous tissue; G60.9 Hereditary and idiopathic neuropathy, unspecified | CPT/HCPCS: 11042; 99213 ==

== ENCOUNTER → 2025-08-04 15:16 | Outpatient (CLI) | payer MEDICARE, MEDICAID, SELFPAY | LOC: WC 15:17 | PROVIDERS: Referring Provider Internal Medicine; Visit Provider Physician Assistant | DX: L97.812 Non-pressure chronic ulcer of other part of right lower leg with fat layer exposed (principal); L97.322 Non-pressure chronic ulcer of left ankle with fat layer exposed; I87.2 Venous insufficiency (chronic) (peripheral); R60.0 Localized edema; L53.9 Erythematous condition, unspecified; R21 Rash and other nonspecific skin eruption | CPT/HCPCS: 29581 ==

== ENCOUNTER → 2025-08-08 13:04 | Outpatient (CLI) | payer MEDICARE, MEDICAID, SELFPAY | LOC: WC 13:08 | PROVIDERS: Referring Provider Internal Medicine; Visit Provider Surgery | DX: L97.312 Non-pressure chronic ulcer of right ankle with fat layer exposed (principal); L97.322 Non-pressure chronic ulcer of left ankle with fat layer exposed; I87.2 Venous insufficiency (chronic) (peripheral); R60.0 Localized edema; Z91.199 Patient's noncompliance with other medical treatment and regimen due to unspecified reason | CPT/HCPCS: 11042 ==

== ENCOUNTER → 2025-08-11 15:04 | Outpatient (CLI) | payer MEDICARE, MEDICAID, SELFPAY | LOC: WC 15:06 | PROVIDERS: Referring Provider Internal Medicine; Visit Provider Physician Assistant | DX: I87.2 Venous insufficiency (chronic) (peripheral) (principal); L97.812 Non-pressure chronic ulcer of other part of right lower leg with fat layer exposed; L97.322 Non-pressure chronic ulcer of left ankle with fat layer exposed; L98.8 Other specified disorders of the skin and subcutaneous tissue; L81.8 Other specified disorders of pigmentation; L90.8 Other atrophic disorders of skin | CPT/HCPCS: 29581 ==

== ENCOUNTER → 2025-08-15 13:28 | Outpatient (CLI) | payer MEDICARE, MEDICAID, SELFPAY | LOC: WC 13:31 | PROVIDERS: Visit Provider Surgery | DX: I87.2 Venous insufficiency (chronic) (peripheral) (principal); L97.312 Non-pressure chronic ulcer of right ankle with fat layer exposed; L97.322 Non-pressure chronic ulcer of left ankle with fat layer exposed; R60.0 Localized edema | CPT/HCPCS: 11042; 99213 ==

== ENCOUNTER → 2025-08-18 13:14 | Outpatient (CLI) | payer MEDICARE, MEDICAID, SELFPAY | LOC: WC 13:16 | PROVIDERS: Visit Provider Physician Assistant | DX: I87.2 Venous insufficiency (chronic) (peripheral) (principal); L97.812 Non-pressure chronic ulcer of other part of right lower leg with fat layer exposed; L97.322 Non-pressure chronic ulcer of left ankle with fat layer exposed; L98.8 Other specified disorders of the skin and subcutaneous tissue; R60.0 Localized edema | CPT/HCPCS: 29581 ==

== ENCOUNTER → 2025-08-22 13:34 | Outpatient (CLI) | payer MEDICARE, MEDICAID, SELFPAY | LOC: WC 13:36 | PROVIDERS: Referring Provider Internal Medicine; Visit Provider Surgery | DX: I87.2 Venous insufficiency (chronic) (peripheral) (principal); L97.512 Non-pressure chronic ulcer of other part of right foot with fat layer exposed; L97.322 Non-pressure chronic ulcer of left ankle with fat layer exposed; L98.8 Other specified disorders of the skin and subcutaneous tissue; R60.0 Localized edema; G60.9 Hereditary and idiopathic neuropathy, unspecified | CPT/HCPCS: 11042; 87070; 87075; 87077; 87186; 87205; 99213 ==

== ENCOUNTER → 2025-08-29 14:05 | Outpatient (CLI) | payer MEDICARE, MEDICAID, SELFPAY | LOC: WC 14:06 | PROVIDERS: Referring Provider Internal Medicine; Visit Provider Surgery | DX: I87.2 Venous insufficiency (chronic) (peripheral) (principal); L97.812 Non-pressure chronic ulcer of other part of right lower leg with fat layer exposed; L97.322 Non-pressure chronic ulcer of left ankle with fat layer exposed; L98.8 Other specified disorders of the skin and subcutaneous tissue; R60.0 Localized edema; G60.9 Hereditary and idiopathic neuropathy, unspecified | CPT/HCPCS: 11042 ==

== ENCOUNTER → 2025-09-01 13:01 | Outpatient (CLI) | payer MEDICARE, MEDICAID, SELFPAY | LOC: WC 13:03 | PROVIDERS: Referring Provider Internal Medicine; Visit Provider Physician Assistant | DX: I87.2 Venous insufficiency (chronic) (peripheral) (principal); L97.812 Non-pressure chronic ulcer of other part of right lower leg with fat layer exposed; L97.322 Non-pressure chronic ulcer of left ankle with fat layer exposed; L98.8 Other specified disorders of the skin and subcutaneous tissue; R60.0 Localized edema | CPT/HCPCS: 29581 ==

== ENCOUNTER → 2025-09-05 14:03 | Outpatient (CLI) | payer MEDICARE, MEDICAID, SELFPAY | LOC: WC 14:05 | PROVIDERS: Referring Provider Internal Medicine; Visit Provider Surgery | DX: I87.2 Venous insufficiency (chronic) (peripheral) (principal); L97.312 Non-pressure chronic ulcer of right ankle with fat layer exposed; L97.322 Non-pressure chronic ulcer of left ankle with fat layer exposed; R60.0 Localized edema; L98.8 Other specified disorders of the skin and subcutaneous tissue | CPT/HCPCS: 11042 ==

== ENCOUNTER → 2025-09-12 16:21 | Outpatient (CLI) | payer MEDICARE, MEDICAID, SELFPAY | LOC: WC 16:23 | PROVIDERS: Referring Provider Internal Medicine; Visit Provider Surgery | DX: I87.2 Venous insufficiency (chronic) (peripheral) (principal); L97.812 Non-pressure chronic ulcer of other part of right lower leg with fat layer exposed; L97.322 Non-pressure chronic ulcer of left ankle with fat layer exposed; L98.8 Other specified disorders of the skin and subcutaneous tissue; R60.0 Localized edema | CPT/HCPCS: 11042; 99213 ==

== ENCOUNTER → 2025-09-15 14:39 | Outpatient (CLI) | payer MEDICARE, MEDICAID, SELFPAY | LOC: WC 14:40 | PROVIDERS: Referring Provider Internal Medicine; Visit Provider Physician Assistant | DX: I87.2 Venous insufficiency (chronic) (peripheral) (principal); L97.322 Non-pressure chronic ulcer of left ankle with fat layer exposed; L81.8 Other specified disorders of pigmentation; L90.8 Other atrophic disorders of skin | CPT/HCPCS: 29581 ==

== ENCOUNTER → 2025-09-19 13:35 | Outpatient (CLI) | payer MEDICARE, MEDICAID, SELFPAY | LOC: WC 13:58 | PROVIDERS: Referring Provider Internal Medicine; Visit Provider Surgery | DX: R60.0 Localized edema (principal); L98.8 Other specified disorders of the skin and subcutaneous tissue; G60.9 Hereditary and idiopathic neuropathy, unspecified; Z91.198 Patient's noncompliance with other medical treatment and regimen for other reason; I87.2 Venous insufficiency (chronic) (peripheral); L97.812 Non-pressure chronic ulcer of other part of right lower leg with fat layer exposed; L97.322 Non-pressure chronic ulcer of left ankle with fat layer exposed | CPT/HCPCS: 11042; 97597 ==

== ENCOUNTER → 2025-09-22 10:56 | Outpatient (CLI) | payer MEDICARE, MEDICAID, SELFPAY | LOC: WC 10:57 | PROVIDERS: Referring Provider Internal Medicine; Visit Provider Physician Assistant | DX: L97.812 Non-pressure chronic ulcer of other part of right lower leg with fat layer exposed (principal); L97.322 Non-pressure chronic ulcer of left ankle with fat layer exposed; I87.2 Venous insufficiency (chronic) (peripheral); R60.0 Localized edema | CPT/HCPCS: 29581 ==

== ENCOUNTER → 2025-09-26 15:15 | Outpatient (CLI) | payer MEDICARE, MEDICAID, SELFPAY | LOC: WC 15:16 | PROVIDERS: Visit Provider Surgery | DX: I87.2 Venous insufficiency (chronic) (peripheral) (principal); L97.512 Non-pressure chronic ulcer of other part of right foot with fat layer exposed; L97.322 Non-pressure chronic ulcer of left ankle with fat layer exposed; L98.8 Other specified disorders of the skin and subcutaneous tissue; R60.0 Localized edema; G60.9 Hereditary and idiopathic neuropathy, unspecified | CPT/HCPCS: 11042 ==

== ENCOUNTER → 2025-09-29 16:12 | Outpatient (CLI) | payer MEDICARE, MEDICAID, SELFPAY | LOC: WC 16:14 | PROVIDERS: Referring Provider Internal Medicine; Visit Provider Physician Assistant | DX: I87.2 Venous insufficiency (chronic) (peripheral) (principal); L97.812 Non-pressure chronic ulcer of other part of right lower leg with fat layer exposed; L97.322 Non-pressure chronic ulcer of left ankle with fat layer exposed; L98.8 Other specified disorders of the skin and subcutaneous tissue; R60.0 Localized edema | CPT/HCPCS: 29581 ==

== ENCOUNTER → 2025-10-03 13:03 | Outpatient (CLI) | payer MEDICARE, MEDICAID, SELFPAY | LOC: WC 13:05 | PROVIDERS: Visit Provider Surgery | DX: I87.2 Venous insufficiency (chronic) (peripheral) (principal); L97.322 Non-pressure chronic ulcer of left ankle with fat layer exposed; L97.812 Non-pressure chronic ulcer of other part of right lower leg with fat layer exposed | CPT/HCPCS: 11042 ==

== ENCOUNTER → 2025-10-10 12:48 | Outpatient (CLI) | payer MEDICARE, MEDICAID, SELFPAY | LOC: WC 12:50 | PROVIDERS: Referring Provider Internal Medicine; Visit Provider Surgery | DX: I87.2 Venous insufficiency (chronic) (peripheral) (principal); L97.812 Non-pressure chronic ulcer of other part of right lower leg with fat layer exposed; L97.822 Non-pressure chronic ulcer of other part of left lower leg with fat layer exposed; L98.8 Other specified disorders of the skin and subcutaneous tissue; G60.9 Hereditary and idiopathic neuropathy, unspecified | CPT/HCPCS: 11042; 97597; 99213 ==